=== PATIENT | female | born 1935 | race Caucasian/White ===

== ENCOUNTER 2019-03-13 07:25 | Inpatient (IN) | payer OTHER, MEDICARE ==
[2019-03-13] VITALS (11 sets, daily range): BP systolic 128–209; BP diastolic 51–93
[~2019-03-13] VITALS: Ht 160 cm; Wt 44.6 kg
[2019-03-13] MEDS ORDERED: ASPIRIN325 PO (08:01)
[2019-03-13] MEDS ORDERED: ACCU-CHEK SMAR1 EACH MC (08:04)
[2019-03-13 09:29] LABS: ABSOLUTE NEUTROPHILS 11.5 thou/uL (1.4-8.2); BASOPHILS 1.1 % (0.0-2.0); EOSINOPHILS 1.7 % (0.0-3.0); HEMATOCRIT 39.4 % (37.0-47.0); HEMOGLOBIN 12.4 gm/dL (12.0-15.0); LYMPHOCYTES 5.8 % (24.0-44.0); MCH 28.4 pg (26.0-34.0); MCHC 31.4 g/dL (28.0-37.0); MCV 90.7 fL (80.0-100.0); MONOCYTES 2.2 % (1.0-8.0); PLATELET COUNT 313 thou/uL (150-400); POLYS 89.2 % (36.0-66.0); RBC 4.35 mil/uL (4.20-5.00); RDW 16.6 % (10.5-14.5); WBC 12.9 thou/uL (4.0-11.0)
[2019-03-13 09:43] LABS: CALCIUM 9.8 mg/dL (8.5-10.1); CREATININE 0.7 mg/dL (0.6-1.0); POTASSIUM 4.1 mmol/L (3.5-5.1)
[2019-03-13 09:45] LABS: PROTIME 10.7 Seconds (9.3-11.4)
[2019-03-13 09:50] LABS: TOTAL BILIRUBIN 0.8 mg/dL (<0.1-1.0); TOTAL PROTEIN 7.9 g/dL (6.4-8.2)
[2019-03-13 10:56] LABS: URINE BILIRUBIN NEGATIVE (Negative); URINE BLOOD NEGATIVE (Negative); URINE CLARITY CLEAR; URINE COLOR YELLOW; URINE GLUCOSE-RANDOM* NEGATIVE (Negative); URINE KETONES NEGATIVE (Negative); URINE LEUKOCYTES-REFLEX NEGATIVE (Negative); URINE NITRITE-REFLEX NEGATIVE (Negative); URINE PROTEIN (DIPSTICK) NEGATIVE (Negative); URINE SPECIFIC GRAVITY 1.015 (1.005-1.035); URINE UROBILINOGEN 0.2 E.U./dl (0.2-1.0)
[2019-03-13 11:17] LABS: AMP/METHAMP Negative (Negative); BARBITURATES Negative (Negative); BENZODIAZEPINES Negative (Negative); COCAINE Negative (Negative); METHADONE Negative (Negative); OPIATES Negative (Negative); PCP Negative (Negative)
[2019-03-13] MEDS ORDERED: ALEVE220 MG PO (12:11)
[2019-03-13 14:24] LABS: BE(vivo) 5.8 mmol/L (-2 to +3); PCO2 42.4 mmHg (35.0-45.0); PO2 64.3 mmHg (80.0-100.0); pH 7.468 (7.360-7.450); sO2 93.6 % (92.0-98.0)
--- NOTE | 2019-03-13 18:22 | NUR ---
ARRIVED ON UNIT @ 1511 03/13/19 WITH THE ASSIST OF 2 RN'S, PT ARRIVED WITH NOTHING INFUSING, FLUIDS RESTARTED ON THE ICU PER ORDER, HYDRALAZINE GIVEN FOR A SBP IN 172, SBP DOWN TO THE 140'S, PLAN OF CARE- CONT TO MONITOR.
[2019-03-14] VITALS (16 sets, daily range): BP systolic 126–197; BP diastolic 55–83
--- NOTE | 2019-03-14 03:46 | NUR ---
ASSUMED PT CARE AROUND 1900. PT IS ORIENTED X2-3 BUT FORGETFUL. SHE IS VERY PLEASANT AND COOPERATIVE. C/O BACK PAIN AND LEFT HIP PAIN. PAIN MEDICATION GIVEN. DENIES SOA. VSS. AFEBRILE. PT HAS BEEN REPOSITIONED Q2H TO PREVENT SKIN BREAKDOWN. NPO SINCE MIDNIGHT FOR SURGERY TODAY. INCONTINENT OF URINE; HAVING DIFFICULTY WITH PURWICK EXTERNAL FEMALE CATHETER CATCHING HER URINE. JUST SPOKE WITH DR TEIXEIRA; ORDER RECEIVED TO PLACE OLMEDO CATHETER. FALL PRECAUTIONS IN PLACE. PROGRESSING SLOWLY TOWARD POC GOALS. WILL CONTINUE TO MONITOR FURTHER.
[2019-03-14 04:22] LABS: ALBUMIN 2.3 g/dL (3.4-5.0); CALCIUM 8.7 mg/dL (8.5-10.1); CREATININE 0.6 mg/dL (0.6-1.0); POTASSIUM 3.5 mmol/L (3.5-5.1); TOTAL BILIRUBIN 0.8 mg/dL (<0.1-1.0); TOTAL PROTEIN 5.8 g/dL (6.4-8.2)
[2019-03-14 04:25] LABS: MAGNESIUM 1.5 mg/dL (1.8-2.4); PHOSPHORUS 3.4 mg/dL (2.5-4.9)
[2019-03-14 05:00] LABS: HEMATOCRIT 31.5 % (37.0-47.0); MCH 28.8 pg (26.0-34.0); MCHC 31.7 g/dL (28.0-37.0); MCV 90.7 fL (80.0-100.0); RBC 3.47 mil/uL (4.20-5.00); RDW 16.9 % (10.5-14.5); WBC 10.1 thou/uL (4.0-11.0)
--- NOTE | 2019-03-14 07:49 | 2DMMODE ---
[facility] [address] [place] [address] 2 D/M-MODE ECHOCARDIOGRAM Name: MAURICIO SHEIKH Blaire Room #: 238-P [facility] IN .R.#: [id number] Admission: 03/13/19 Attend Phys: Andrew Garcia, Discharge: Date of : 31 Report #: [id number] THIS REPORT FOR: //name// APPROVED REPORT Study performed: 03/13/2019 13:01:40 EXAM: Comprehensive 2D, Doppler, and color-flow Echocardiogram Patient Location: ER Status: routine BSA: 1.47 HR: 74 bpm Rhythm: NSR Other Information Study Quality: Adequate Indications Pre-Op Hypertension/HDD 2D Dimensions RVDd: 37.09 mm IVC: 23.00 mm Volumes Left Atrial Volume (Systole) Single Plane 4CH: 64.40 mL Single Plane 2CH: 57.50 mL LA ESV Index: 46.00 mL/m2 Aortic Valve AoV Peak Steven.: 1.65 m/s AO Peak Gr.: 10.93 mmHg LVOT Max P.27 mmHg LVOT Max V: 1.03 m/s Mitral Valve E/A Ratio: 0.4 MV Decel. Time: 337.90 ms MV E Max Steven.: 0.60 m/s MV A Steven.: 1.52 m/s MV PHT: 97.99 ms IVRT: 166.09 ms [facility] [address] [address] 2 D/M-MODE ECHOCARDIOGRAM Name: MAURICIO SHEIKH Room #: 238-P ADM IN .R.#: [id number] Admission: 03/13/19 Attend Phys: Andrew Garcia, Discharge: Date of : 33 Report #: [id number] Pulmonary Valve PV Peak Steven.: 0.99 m/s PV Peak Gr.: 3.99 mmHg Pulmonary Vein P Vein S: 0.53 m/s P Vein A: 0.23 m/s P Vein D: 0.28 m/s P Vein A Dur.: 92.3 msec P Vein S/D Ratio: 1.89 Tricuspid Valve TR Peak Steven.: 2.87 m/s TR Peak Gr.: 33.04 mmHg PA Pressure: 43.00 mmHg Left Ventricle The left ventricle is normal size. There is normal LV segmental wall motion. There is normal left ventricular wall thickness. The left ventricular systolic function is normal. The left ventricular ejection fraction is within the normal range. LVEF is 60-65%. Mild diastolic dysfunction is present (impaired relaxation pattern). Right Ventricle The right ventricle is normal size. The right ventricular systolic function is normal. RVH. Atria Left atrium is dilated. Right atrium is at the upper limits of normal. Aortic Valve The aortic valve is calcified No aortic regurgitation is present. There is no aortic valvular stenosis. Mitral Valve Mild mitral annular calcification. Mildly calcified mitral leaflets. Mild mitral regurgitation. No evidence of mitral valve stenosis. Tricuspid Valve The tricuspid valve is normal in structure. There is trace tricuspid regurgitation. Estimated PAP 43 mmHg. There is moderate pulmonary hypertension. Pulmonic Valve The pulmonary valve is normal in structure. Trace pulmonic regurgitation. [facility] [address] [place] [address] 2 D/M-MODE ECHOCARDIOGRAM Name: MAURICIO SHEIKH Room #: 238-[facility] IN [facility].#: [id number] Admission: 03/13/19 Attend Phys: Andrew Garcia, Discharge: Date of : 31 Report #: [id number] Great Vessels The aortic root is normal in size. IVC is dilated and collapses <50% with inspiration. Pericardium There is no pericardial effusion. <Conclusion> The left ventricular systolic function is normal. There is normal LV segmental wall motion. LVEF is 60-65%. Mild diastolic dysfunction The right ventricular systolic function is normal. RVH. The aortic valve is calcified. No aortic regurgitation or stenosis. Mild mitral annular calcification. Mildly calcified mitral leaflets. Mild mitral regurgitation. There is trace tricuspid regurgitation. Estimated pulmonary artery pressure of 43 mmHg. There is no pericardial effusion. <ELECTRONICALLY SIGNED> By: Tomy Watson MD, FACC 03/14/19 0748 0748 0748 Tomy Watson MD, FACC /INF
--- NOTE | 2019-03-14 08:30 | EKG ---
[address] [place] [address] ELECTROCARDIOGRAM REPORT Name: MAURICIO SHEIKH Room #: 238-P ADM IN M.R.#: [id number] Admission: 03/13/19 Attend Phys: Andrew Garcia MD Discharge: Date of : 31 Report #: [id number] THIS REPORT FOR: //name// Test Date: 2019-03-13 Test Time: 16:37:23 Pat Name: MAURICIO SHEIKH Department: Room: 238 Gender: F Cathodic Protection Technician: Alessia ANDERSON : 1935 Requested By: Olga Salazar Order Number: [id number] MD: Tomy Watson Measurements Intervals [place] Rate: 80 P: 67 [place]: 176 QRS: 43 QRSD: 73 T: -25 QT: 481 QTc: 555 Interpretive Statements Sinus rhythm Left atrial enlargement Nonspecific T wave abnormality Prolonged QT interval No previous ECG available for comparison Electronically Signed On 03-14-2019 8:30:14 CROWN PRESSER by Tomy Watson [email or web address] <ELECTRONICALLY SIGNED> By: Tomy Watson MD, [facility] 03/14/19 0830 D: 11/1636 36 Tomy Watson MD, FACC /EPI
--- NOTE | 2019-03-14 09:18 | NUR ---
Assess due to low BMI 17.4. Admitted with hip fracture post fall at home. Minor wt loss few pounds from usual. NPO for surgical intervention today. Follow for timely diet advance and tolerance. Add oral supplement if necessary. Otherwise low nutrition risk.
--- NOTE | 2019-03-14 10:53 | NUR ---
Case opened to follow for dc planning. Chart reviewed and case discussed with the care team. The pt was admitted with lt hip fx and lt rib fx after a fall at home. She is in the surgery this morning for her hip. The pt's only contact is a friend named Ria who I believe is also her roommate. Message left for Ria to contact cm to help with her assessment. The pt lives at the [facility] and was using a rwalker prior to admission. Per her chart, she does not drive but was able to go out with her friend to do errands and shopping. She was indep with gait, adl's, med mngt and helped with some Iadl's prior to admission. She expressed interest in going to [facility] for rehab postop. Will f/u with the pt as able and initiate a snf referral with [facility].
--- NOTE | 2019-03-14 13:58 | NUR ---
BACK FROM OR AT 1300, LEFT HIP PINNED, DRESSING CDI, ICE PACK APPLIED. C/O PAIN WHEN MOVING, 510. OXYCONTIN 5MG GIVEN. 15 [place] OLMEDO CATHETER PLACED AND 250CC CLEAR YELLOW URINE NOTED. WILL TRANSFER TO ROOM 442 [facility]
--- NOTE | 2019-03-14 16:26 | NUR ---
83 YO FEMALE TRANSFERED FROM ICU TO 442. A&OX4. IV INTACT IN L FA INFUSING FLUIDS W/O COMPS. DRSG TO L HIP C/D/I. OLMEDO CATHETER INTACT. DENIES PAIN AT THIS TIME. ORIENTED PT TO ROOM/CALL LIGHT. ICE BAG APPLIED TO L HIP.
--- NOTE | 2019-03-14 16:40 | NUR ---
FAXED REFERRAL TO [facility] RECEIVED CONFIRMATIN AND LEFT MSG WITH GRAHAM IN ADM THAT PT IS HAVING HIP SURGERY TODAY WILL FAX THERAPY NOTES ONCE AVAILABLE. DP TO FOLLOW.
[2019-03-15] VITALS: BP 89/62
[2019-03-15 00:07] LABS: GLYCOHEMOGLOBIN (HGB A1C) 5.6 % (4.8-5.6)
[2019-03-15 03:00] VITALS: BP 166/66
[2019-03-15 05:29] LABS: HEMATOCRIT 29.9 % (37.0-47.0); HEMOGLOBIN 9.6 gm/dL (12.0-15.0); MCH 29.4 pg (26.0-34.0); MCHC 32.1 g/dL (28.0-37.0); MCV 91.6 fL (80.0-100.0); RBC 3.26 mil/uL (4.20-5.00); RDW 17.2 % (10.5-14.5); WBC 10.9 thou/uL (4.0-11.0)
[2019-03-15 05:48] LABS: ALBUMIN 2.3 g/dL (3.4-5.0); CALCIUM 8.9 mg/dL (8.5-10.1); CREATININE 0.6 mg/dL (0.6-1.0); MAGNESIUM 1.9 mg/dL (1.8-2.4); POTASSIUM 3.4 mmol/L (3.5-5.1); TOTAL BILIRUBIN 0.7 mg/dL (<0.1-1.0)
--- NOTE | 2019-03-15 06:21 | NUR ---
ASSUMED PT CARE 03/14 @1900. PT COMPLAINING OF HEADACHE, GIVEN TYLENOL WHICH PROVIDED RELIEF. HYDRALAZINE GIVEN FOR HIGH BP, INSULIN GIVEN FOR HIGH BS. 375ML EMPTIED FROM CATHETER, WILL NOTIFY AM NURSE TO MONITOR OUTPUT CLOSELY. FLUIDS RUNNING @125, REPOSITIONED FREQUENTLY.
[2019-03-15 08:54] VITALS: BP 151/63
--- NOTE | 2019-03-15 15:00 | NUR ---
[facility] AND [facility] BOTH INDICATED THAT THEY ARE ABLE TO ACCEPT PT. CM NOTIFIED PT AND SHE INDICATED SHE WOULD PREFER TO GO TO [facility] ONCE MEDICALLY STABLE. CM CALLED THE NUMBER LISTED FOR HER ROOMMATE BUT INFOMRED PT THAT CM WASN'T ABLE TO REACH HER. CM NOTIFIED CARE TEAM. CM TO FOLLOW INDICATED WITH DC PLANNING.
--- NOTE | 2019-03-15 15:18 | NUR ---
PATIENT SEEN BY DR. MCCURDY THIS DATE. PATIENT IS A CANDIDATE FOR [facility] WITH ANTICIPATED ADMISSION WHEN MEDICALLY STABLE. PATIENT ANTICIPATED TO BE READY FOR REHAB WEDNESDAY,03/17/19. WILL CONTINUE TO FOLLOW. THANK YOU FOR THIS REFERRAL.
[2019-03-15 17:46] VITALS: BP 184/90
--- NOTE | 2019-03-15 18:40 | NUR ---
PT A&OX4, FORGETFUL AT TIMES. IV INTACT IN L WRIST INFUSING NS@ /HR W/O COMPS. ABD DRSG TO L HIP IS C/D/I. ICE PACK APPLIED TO R HIP. OLMEDO HAD FELL OUT THIS AM. PT HAS VOIDED SINCE. BED ALARM ON, CALL LIGHT W/I REACH.
[2019-03-15 19:19] VITALS: BP 172/78
--- NOTE | 2019-03-16 00:52 | NUR ---
ASSUMED CARE OF PATIENT AT SHIFT CHANGE. ASSESSMENT CHARTED. MEDICATIONS GIVEN PER JUN. PATIENT REFUSED JOYA. MIRALAX BUT DID TAKE COLASE. PATIENT IS ALERT AND ORIENTED X4 AT THIS TIME. SHE HAS A REPORTED HX. OF CINFUSION BUT IT IS NOT EVIDENT AT THIS TIME. PATIENT DID WORK WITH PT BUT WE HAVE DECIDED THAT DUE TO HER WEAKNESS SHE WILL BE USING A FRACTURE FERREIRA THIS SHIFT TO VOID. PATIENT WAS BLADDER SCANNED AND SHOWED 81MLS OF URINE. SHE LATER VOIDED 90MLS. PATIENT DID COMPLAIN OF L HIP AND RIB PAIN EXACERBATED BY MOVEMENT. PRN PAIN MED GIVEN. PT HAD A BM EARLIER DURING THE DAY. PER CM NOTE, PLAN IS TO D/C TO [facility] AT [facility] OR [facility]. FALL PRECAUTIONS IN PLACE. CALL LIGHT W/I REACH. WILL CONTINUE TO MONITOR AND FOLLOW PLAN OF CARE
[2019-03-16 04:25] VITALS: BP 185/81
[2019-03-16 05:30] VITALS: BP 157/62
[2019-03-16 07:43] VITALS: BP 144/57
--- NOTE | 2019-03-16 16:29 | NUR ---
PT A&OX4. TRANSFERS WITH MAX ASSIST TO CHAIR. IV INTACT IN L W AND R AC INFUSING FLUIDS W/O COMPS. PT VOIDS IN BED FERREIRA THOUGH ALSO HAS URGENCY INCONT. PT/OT HAS SEEN PT TWICE TODAY. TOLERATING PO PAIN MEDS. PLANS ARE FOR PT TO ADMIT TO [facility] 03/17/19. WILL CONT POC.
[2019-03-16 17:07] VITALS: BP 160/84
[2019-03-16 19:27] VITALS: BP 179/69
[2019-03-17 01:46] VITALS: BP 199/80
[2019-03-17 04:22] VITALS: BP 160/63
--- NOTE | 2019-03-17 06:15 | NUR ---
ASSUMED PT CARE ON 03/16/19 APPROX 191. PT IS ALERT AND ORIENTED X 3. PT IS FORGETFUL. PT ASKS TO USE THE BEDPAN BUT WILL NOT US THE CALL LIGHT. PT HAS BEEN RE EDUCATED ON HOW TO USE THE CALL LIGHT. PT TOOK EVENING MEDICATION WILLINGLY. PT HAS AN IV IN HER LEFT FA, NS RUNNING AT 125 MLS AN HR. PT HAS VOIDED AND HAD 4 BM'S DURING THE NIGHT. PT HAS RECEIVED [facility]. DRESSING ON THE LEFT HIP IS DRY AND STILL IN PLACE. WILL CONTINUE TO MONITOR.
--- NOTE | 2019-03-17 08:08 | NUR ---
PATIENT RESING IN BED HAS DRESSIND INTACT TO LEFT HIP. PT ALERT XS 4 USES BEDPAN. PLEASANT AND COOPERATIVE WITH CARE.
[2019-03-17 09:38] VITALS: BP 117/67
[2019-03-17] MEDS ORDERED: LISINOPRIL2.5 MG PO (13:36)
[2019-03-17] MEDS ORDERED: LIDOCAINE PAIN1 EACH TRANSDERM (13:59)
[2019-03-17] MEDS ORDERED: HUMALOG100 UNIT/1 SUBQ ×2 (14:03→14:45)
[2019-03-17] MEDS ORDERED: COLACE100 MG PO (14:07)
[2019-03-17] MEDS ORDERED: AMOXICILLI400 MG/5 M PO (14:08)
[2019-03-17] MEDS ORDERED: HEPARIN 1,1000 UNIT/ SUBQ (14:14)
[2019-03-17] MEDS ORDERED: HYDRALAZINE 10M10 MG IV PUSH (14:23)
--- NOTE | 2019-03-17 15:38 | NUR ---
DISCHARGE PAPERS GONE OVER SIGNED AND COPY IN CHART. REPORT GIVEN TO [address] [place] [address] NURSE. MED PRDERS PUT IN COMPUTER PER DR TEIXEIRA AND ALSO DR MCCURDY WHO CAME TO UNIT TO SEE PATIENT HE ASKED THAT IV BE LEFT IN PLACE. ALL BELONGINGS TAKEN WITH PATIENT TO ROOM 513. PT WAS DCD FROM [address] [place] [address] AND WILL BE READMITTED ON [address] [place] [address]. PT W/O PAIN OR RESP DISTRESS AT DISCHARGE.
--- NOTE | 2019-03-22 12:20 | O ---
[facility] [place] [address] OPERATIVE REPORT Name: MAURICIO SHEIKH Room #: 442-P [facility] IN M.R.#: [id number] Admission: 03/13/19 Attend Phys: Andrew Garcia MD Discharge: 03/17/19 Date of : 31 Report #: [id number] THIS REPORT FOR: //name// CC: Andrew Rogers DATE OF SERVICE: 03/14/2019 PREOPERATIVE DIAGNOSIS: Left hip femoral neck fracture. POSTOPERATIVE DIAGNOSIS: Left hip femoral neck fracture. PROCEDURE: Left hip percutaneous screw. SURGEON: Dr. Wil Sutherland. CAPONIZER: Sharon Dejesus. ANESTHESIA: General. ESTIMATED BLOOD LOSS: Minimal. DRAINS: No drains. TOURNIQUET TIME: Zero. COMPLICATIONS: There were no complications. DESCRIPTION OF PROCEDURE: The patient brought to the operating room where she was placed under general anesthesia. Once under adequate general anesthesia, she was placed onto the operative table. The patient's left lower extremity was placed into traction on the fracture table and reduction was verified to be satisfactory on the fluoroscopy. The left hip was then prepped and draped in sterile manner, through a 1 cm incision 3 7.3 mm cannulated screws were placed under fluoroscopic guidance from the lateral cortex into the femoral neck. Excellent fixation was achieved in this manner with 3 screws in an inverted fashion. The wounds were then irrigated copiously and closed with 2-0 Vicryl in subcutaneous tissues and cielo for the skin. The wound was dressed with Xeroform, 4 x 4s, and sterile soft compressive dressing was placed. There were no complications from the procedure. The patient tolerated the procedure well and went to the recovery room without incident. <ELECTRONICALLY SIGNED> By: Wil Sutherland MD 03/22/19 1220 1101 1107 Wil Sutherland MD /nt
--- NOTE | 2019-03-24 16:25 | HC ---
[facility] [place] [address] CONSULTATION Name: MAURICIO SHEIKH Room #: 442-P [facility] IN M.R.#: [id number] Admission: 03/13/19 Attend Phys: Andrew Garcia MD Discharge: 03/17/19 Date of : 33 Report #: [id number] THIS REPORT FOR: //name// CC: Andrew Teixeiratasia Herndons DATE OF SERVICE: 03/15/2019 HISTORY OF PRESENT ILLNESS: The patient is an 83-year-old white female who fell from standing, sustaining left-sided rib fractures and also had a left femoral neck fracture. She was admitted to [facility] and underwent a left hip screw on 03/14/2019. She is allowed the weightbearing as tolerated. The patient has a prior recent history of a large pleural effusion and underwent thoracentesis at [facility] approximately a month prior. She was seen by Pulmonary Medicine. CT did show some cavitary changes, right upper lobe. She also has some pulmonary fibrosis. Pulmonary Medicine is involved. We are seeing her in rehabilitation medicine consultation. PAST MEDICAL HISTORY: Includes diabetes mellitus type 2. There is a note of some memory loss on donepezil, tobacco abuse, quit approximately a month prior. PAST SURGICAL HISTORY: Includes the prior right chest thoracentesis, appendectomy. FAMILY HISTORY: Father had throat cancer. ALLERGIES: No known drug allergies. MEDICATIONS: Please see the full medication listing. SOCIAL HISTORY: Lives in an apartment with a roommate. The roommate is in a wheelchair currently. No steps. The patient is a premorbid walker ambulator herself. REVIEW OF SYSTEMS: No current complaints of shortness of breath. She has the chest wall discomfort. No abdominal discomfort. She has some hip pain as expected. PHYSICAL EXAMINATION: GENERAL: She is a pleasant, thin 83-year-old white female in no obvious distress. VITAL SIGNS: Last recorded temperature 97.8, pulse 86, respirations 17, blood pressure 151/63. She is alert, pleasant, oriented. HEENT: Appeared to be benign. NEUROLOGIC: Cranial nerves are grossly intact. Facies are symmetric. She has functional range of motion of both upper extremities with strength grade 4-/5. [facility] [address] [place] [address] CONSULTATION Name: MAURICIO SHEIKH Room #: 442-P [facility] IN ..#: [id number] Admission: 03/13/19 Attend Phys: Andrew Garcia MD Discharge: 03/17/19 Date of : 33 Report #: [id number] DTRs are trace to 1. She has some discomfort of the left-sided ribs. Left hip is dressed. There is no focal calf swelling. She can dorsiflex the left ankle. Tone appeared to be intact. Functional range of motion with strength grade 3+ to 4-/5 right lower extremity. Tone is intact. She is mod assist coming to stand and took 7 steps front-wheeled walker, mod assist. ASSESSMENT: An 83-year-old white female with the following problem list: 1. Left femoral neck fracture, status post left hip screw, 03/14/2019, allow weightbearing as tolerated. 2. Multiple left-sided rib fractures. 3. Large pleural effusion with recent right thoracentesis at [facility]. 4. Cavitary changes noted, right upper lobe on CT scan. 5. Pulmonary fibrosis. 6. Hypertension. 7. Diabetes mellitus type 2. 8. Tobacco abuse. 9. Prior history of some memory problems. Nevertheless, living in the community. PLAN: The patient is a good candidate for a [address] [place] [address] acute in-hospital inpatient rehabilitation stay. Can plan on transfer when medically cleared. <ELECTRONICALLY SIGNED> By: Ryan Jamil MD 03/24/19 1625 [id number] Ryan Jamil MD /[facility]
== END 2019-03-17 15:30 | DRG 480 ==
LOC: ER 07:25 → ICU 10:02 → 4S 10:02 → EROBS 10:02 → ICU 14:56 → 4S 03-14 16:00
PROVIDERS: Emergency Medicine; Nurse Practitioner Family; ADMIT Surgery
PROC: 0QH734Z Insertion of Internal Fixation Device into Left Upper Femur, Percutaneous Approach (ICD-10-PCS; principal; 2019-03-14)
DX: S72.012A Unspecified intracapsular fracture of left femur, initial encounter for closed fracture (principal); J85.2 Abscess of lung without pneumonia; S22.42XA Multiple fractures of ribs, left side, initial encounter for closed fracture; E11.9 Type 2 diabetes mellitus without complications; I16.0 Hypertensive urgency; W01.0XXA Fall on same level from slipping, tripping and stumbling without subsequent striking against object, initial encounter; I10 Essential (primary) hypertension; J84.10 Pulmonary fibrosis, unspecified; E87.6 Hypokalemia; D64.9 Anemia, unspecified; J44.9 Chronic obstructive pulmonary disease, unspecified; D72.829 Elevated white blood cell count, unspecified; F03.90 Unspecified dementia, unspecified severity, without behavioral disturbance, psychotic disturbance, mood disturbance, and anxiety; Z79.899 Other long term (current) drug therapy; Z79.82 Long term (current) use of aspirin; Z87.891 Personal history of nicotine dependence; Z90.89 Acquired absence of other organs; Z80.8 Family history of malignant neoplasm of other organs or systems; Y93.89 Activity, other specified; Y99.8 Other external cause status; Z79.4 Long term (current) use of insulin; Z79.84 Long term (current) use of oral hypoglycemic drugs; Y92.098 Other place in other non-institutional residence as the place of occurrence of the external cause
CPT/HCPCS: 10078; 10195; 50010; 50101; 50386; 51412; 51538; 52304; 53400; 56524; 57092; 62110; 62900; 70005

== ENCOUNTER 2019-03-17 10:03 | Inpatient (IN) | payer OTHER, MEDICARE ==
[~2019-03-17] VITALS: Ht 160 cm; Wt 44.8 kg
[~2019-03-17 10:03] MED LIST: ACCU-CHEK SMAR1 EACH MC; ALEVE220 MG PO; ASPIRIN325 PO
[2019-03-17] MEDS ORDERED: LISINOPRIL2.5 MG PO (13:36)
[2019-03-17] MEDS ORDERED: LIDOCAINE PAIN1 EACH TRANSDERM (13:59)
[2019-03-17] MEDS ORDERED: HUMALOG100 UNIT/1 SUBQ ×2 (14:03→14:45)
[2019-03-17] MEDS ORDERED: COLACE100 MG PO (14:07)
[2019-03-17] MEDS ORDERED: AMOXICILLI400 MG/5 M PO (14:08)
[2019-03-17] MEDS ORDERED: HEPARIN 1,1000 UNIT/ SUBQ (14:14)
[2019-03-17] MEDS ORDERED: HYDRALAZINE 10M10 MG IV PUSH (14:23)
--- NOTE | 2019-03-17 16:37 | NUR ---
1600 ADMITTED TO ROOM 513 WITH DX OF FX LEFT HIP AND RIBS. PATIENT IS ALERT AND ORIENTED X4, BUT FORGETFUL. PATIENT SINGH'S, BENCH CHEMIST ARE EQUAL. LUNGS ARE CLEAR AND DEMINISHED. ABD IS SOFT WITH BSX4. UP TO BSC FOR B & B WITH AN ASSIST OF 1 STAFF AND GAIT BELT. DRESSING TO HER LEFT HIP IS DRY AND INTACT 7 RON. FALL AND SAFETY PROTOCOLS IN PLACE. DENIES ANY PAIN AT THIS TIME. PLAN EVALS FOR PT/ OT /ST IN A.M. CALL LIGHT IN REACH AND ALARMS ARE ON. WILL CONTINUE TO MONITER.
[2019-03-17 16:58] VITALS: BP 188/94
[2019-03-17 19:35] VITALS: BP 193/95
[2019-03-17 21:45] VITALS: BP 200/102
[2019-03-17 23:05] VITALS: BP 140/63
--- NOTE | 2019-03-18 03:42 | NUR ---
ASSUMED CARE AT APPROX 1900 EVENING 03/17.PT LYING IN BED WITH HEAD OF BED ELEVATED AT CHANGE OF SHIFT. PT FORGETFUL. PT ASSISTED UP TO BSC TWICE BEFORE FALLING ASLEEP. PT WITH HIGH BP 200/102. GIVEN IV HYDRALAZINE ORDERED AND BP WENT DOWN TO 140/63. PT APPEARS TO BE SLEEPING SOUNDLY AT PRESENT. BED ALARM ON AND CALL LIGHT IN REACH. WILL CONTINUE TO MONITOR.
[2019-03-18 05:16] VITALS: BP 170/81
[2019-03-18 05:17] LABS: CALCIUM 8.6 mg/dL (8.5-10.1); CREATININE 0.5 mg/dL (0.6-1.0); HEMATOCRIT 31.9 % (37.0-47.0); HEMOGLOBIN 10.2 gm/dL (12.0-15.0); MCH 29.5 pg (26.0-34.0); MCV 92.1 fL (80.0-100.0); POTASSIUM 3.3 mmol/L (3.5-5.1); RBC 3.46 mil/uL (4.20-5.00); RDW 17.6 % (10.5-14.5); WBC 8.7 thou/uL (4.0-11.0)
--- NOTE | 2019-03-18 15:04 | NUR ---
ASSUMED CARE OF PT AT 0715. PT IS A&OX4. PT HAS TRACE EDEMA TO BLE. AT APPROXIMATELY 1100 PT B/P ELEVATED AND PT WAS GIVEN IV HYDRALAZINE PER ORDERS. IV TO RIGHT AND LEFT FOREARM NOT PATENT AND WERE REMOVED AND NEW IV PLACED IN RIGHT FOREARM. ACCU CHECKS ACHS MONITORED AND MANAGED WITH LOW DOSE SS. FALL PRECAUTIONS IN PLACE AND NURSING WILL CONTINUE TO MONITOR.
[2019-03-18 19:52] VITALS: BP 172/84
[2019-03-18 21:25] VITALS: BP 178/81
[2019-03-18 22:35] VITALS: BP 142/86
--- NOTE | 2019-03-19 02:36 | NUR ---
ASSUMED CARE AT APPROX 1900 EVENING 03/18. PT LYING IN BED WITH HEAD OF BED ELEVATED AT CHANGE OF SHIFT. PT AWAKE YET DOZING OFF AND ON. PT TOOK HS MEDS WITH WATER TOLERATING WELL. IV HYDRALAZINE GIVEN FOR HTN AND BP IMPROVED (SEE CHARTING RESULT). ASSISTED PT UP TO BSC TO HAVE LIQUID STOOL. PT NOW BACK TO BED. BED ALARM ON AND CALL LIGHT IN REACH. WILL CONTINUE TO MONITOR.
[2019-03-19 05:10] LABS: HEMATOCRIT 29.8 % (37.0-47.0); HEMOGLOBIN 9.8 gm/dL (12.0-15.0); MCH 29.8 pg (26.0-34.0); MCHC 32.8 g/dL (28.0-37.0); MCV 90.7 fL (80.0-100.0); RBC 3.29 mil/uL (4.20-5.00); RDW 17.4 % (10.5-14.5); WBC 7.6 thou/uL (4.0-11.0)
[2019-03-19 05:15] LABS: CALCIUM 9.2 mg/dL (8.5-10.1); CREATININE 0.6 mg/dL (0.6-1.0); MAGNESIUM 1.5 mg/dL (1.8-2.4); POTASSIUM 3.8 mmol/L (3.5-5.1)
[2019-03-19 08:56] VITALS: BP 187/86
--- NOTE | 2019-03-19 18:17 | NUR ---
ASSUMED CARE OF PT AT 0715. PT IS A&OX4. BLOOD PRESSURE ELEVATED DURING AM VITAL SIGN CHECK, MANAGED WITH PO AND IV MEDICAITONS. IV TO RIGHT FOREARM IS PATENT, DRESSING C/D/I, AND SITE WNL. CONTINUE CONTACT PRECAUTIONS FOR C-DIFF. IV MAGNESIUM ORDERED BY PROVIDER FOR DECREASED MAGNESIUM ON AM LABS. LEFT HIP SURGICAL SITE HIGHWAY TRAFFIC CONTROL TECHNICIAN, RON INTACT, SITE WELL APPROXIMATED WITHOUT DRAINAGE, REDNESS, OR EDEMA. CALLS APPROPRIATLEY, FALL PRECAUTIONS IN PLACE AND NURSING WILL CONTINUE TO MONITOR.
[2019-03-19 19:55] VITALS: BP 169/90
--- NOTE | 2019-03-20 02:58 | NUR ---
UP TO BSC WITH ONE PERSON ASSIST. STILL HAVING PAIN AFTER MIDNIGHT TYLENOL, TRAMADOL FOR PAIN = 7, LEFT LEG ELEVATED TO OFF-LOAD LEFT MEDIAL HEEL. PATIENT IS SLEEPING AT THIS TIME. TOLERATING MED FOR C-DIFF. SPECIAL ISOLATION
[2019-03-20 08:07] VITALS: BP 148/84
[2019-03-20 08:42] VITALS: BP 148/84
--- NOTE | 2019-03-20 11:44 | NUR ---
ASSUMED CARE OF PT AT 0715. REPORTS SLEPT FAIR. NIGHT NURSE REPORTS PT STILL HAS LOOSE STOOL.NOTIFIED YELITZA AND OBTAINED ORDER FOR PROBIOTIC. BS HAS BEEN STABLE LESS THAN 120. ON MODERATE DOSE SS. NOTIFIED YELITZA TO SEE IF PT NEED FOR ACHS AND ON MODERATE DOSE. SHE WILL CHECK WITH PT AND ADJUST ACCORDINGLY. PT IS A&OX4. ASSINIBOINE AND [place] TRIBES. VSS ON RA. IV TO RIGHT FOREARM IS PATENT, DRESSING C/D/I, AND SITE WNL. CONTINUE CONTACT PRECAUTIONS FOR C-DIFF. LEFT HIP SURGICAL SITE JUANCARLOS, RON INTACT, SITE WELL APPROXIMATED WITHOUT DRAINAGE, REDNESS, OR EDEMA. C/O PAIN ON RIGHT HIP AND RIBS. RATES PAIN 6/10 PRN TRAMADOL GIVEN AND LIDOCAIN PATCH APPLIED. PT WALKED WITH PHYSICAL THERAPIST AND HAD SPONGE BATH WITH OT. WORKING WITH ST NOW. OFFERED SUPPORTIVE CARE AND ENCOURAGEMENT. UP WITH MAX ASSIST WITH WALKER AND GB. CALLS APPROPRIATLEY, FALL PRECAUTIONS IN PLACE AND NURSING WILL CONTINUE TO MONITOR.
--- NOTE | 2019-03-20 12:20 | NUR ---
pt out of room, working with speech therapy. will cont following as needed for dc needs.
[2019-03-20 19:36] VITALS: BP 162/90
--- NOTE | 2019-03-20 23:35 | NUR ---
PT ASSESSMENT DONE AND VSS. MEDS GIVEN AND WELL TOLERATED. FALL PRECAUTIONS IN PLACE. ISOLATION MAINTAINED. SLEEPING WELL. HOURLY ROUNDING. CALL LIGHT IN REACH. WILL CONTINUE TO MONITOR.
[2019-03-21 07:45] VITALS: BP 179/95
[2019-03-21 07:55] VITALS: BP 179/95
[2019-03-21 08:33] VITALS: BP 156/85
--- NOTE | 2019-03-21 10:05 | NUR ---
REQUEST FOR [facility] RECORDS R/T TX PLAN FOR LUNG ABCESS HAS BEEN FAXED TO [facility] MEDICAL RECORDS DEPARTMENT. REQUEST WAS SENT STAT NEED.
--- NOTE | 2019-03-21 13:00 | NUR ---
team meeting, recommendation: re team with possible dc on with HH ( pt, ot, st and nursing). possible needs assist with bills and pills.
--- NOTE | 2019-03-21 14:57 | NUR ---
ASSUMED CARE OF PT AT 0715. PT IS A&OX4. KALTAG. VSS ON RA. IV TO RIGHT FOREARM IS PATENT, DRESSING C/D/I, AND SITE WNL. CONTINUE CONTACT PRECAUTIONS FOR C-DIFF. PT IS ON AMOXICILLIN FOR LUNG ABSCESS AND VACOMYOCIN FOR CDIFF. REQUESTS FOR KU DISCHARGE SUMMARY AND DURATION AMOXICILLIN FOR DR. FRANCIS. AMOXICILLIN D/C DATE WAS Jan. NOTIFIED DR. FRANCIS. LEFT HIP SURGICAL SITE JUANCARLOS, RON INTACT, SITE WELL APPROXIMATED WITHOUT DRAINAGE, REDNESS, OR EDEMA. C/O PAIN ON RIGHT HIP AND RIBS. RATES PAIN 6/10 PRN TRAMADOL GIVEN AND LIDOCAIN PATCH APPLIED. PT WAS UP WITH THERAPISTS AND FINISHED WITH HER THERAPY TODAY. RESTING IN BED AT THIS MOMENT. OFFERED SUPPORTIVE CARE AND ENCOURAGEMENT. UP WITH MAX ASSIST WITH WALKER AND GB. CALLS APPROPPROPRIATELY. FALL PRECAUTIONS IN PLACE AND NURSING WILL CONTINUE TO MONITOR.
[2019-03-21 19:46] VITALS: BP 183/94
--- NOTE | 2019-03-22 04:28 | NUR ---
PT ASSESSMENT DONE AND VSS. MEDS GIVEN AND WELL TOLERATED. FALL PRECAUTIONS IN PLACE. HOURLY ROUNDING. CALL LIGHT IN REACH. SLEEPING WELL. WILL CONTINUE TO MONITOR.
[2019-03-22 05:49] LABS: ABSOLUTE NEUTROPHILS 4.3 thou/uL (1.4-8.2); BASOPHILS 1.2 % (0.0-2.0); HEMATOCRIT 31.4 % (37.0-47.0); HEMOGLOBIN 10.3 gm/dL (12.0-15.0); LYMPHOCYTES 17.9 % (24.0-44.0); MCH 29.9 pg (26.0-34.0); MCHC 32.8 g/dL (28.0-37.0); MCV 91.2 fL (80.0-100.0); MONOCYTES 7.6 % (1.0-8.0); PLATELET COUNT 298 thou/uL (150-400); POLYS 61.3 % (36.0-66.0); RBC 3.45 mil/uL (4.20-5.00); RDW 17.5 % (10.5-14.5)
[2019-03-22 05:54] LABS: CALCIUM 8.7 mg/dL (8.5-10.1); CREATININE 0.6 mg/dL (0.6-1.0); MAGNESIUM 1.5 mg/dL (1.8-2.4)
[2019-03-22 05:55] LABS: POTASSIUM 2.9 mmol/L (3.5-5.1)
--- NOTE | 2019-03-22 06:13 | NUR ---
CRITICAL VALUE OF 2.9 POTASSIUM CALLED TO ME BY MATT IN THE LAB AT 0556. CALLED REVIEWER SALES GRAHAM TO REPORT VALUE AND GET ORDER AT 0605. ORDERS RECEIVED FOR 40 MEQ OF POTASSIUM PO NOW AND GIVE AGAIN IN 2 HOURS. WILL CONTINUE TO MONITOR.
[2019-03-22 07:36] VITALS: BP 171/99
--- NOTE | 2019-03-22 07:53 | NUR ---
ASSUME PT CARE AT 0700. B/P 171/99 HR 83, C/O LEFT HIP AND RIBS PAIN RATES PAIN 6/10, PRN HYDRALIZINE AND TRAMADOL GIVEN. NIGHT NURSE REPORT K 2.9 THIS AM. SUPPLEMENT GIVEN EARLIER AND ANOTHER 40MEQ POTASSIUM GIVEN NOW. PHYSICAL THERAPIST IS WORKING WITH PT NOW AND PT WILL GO TO EAT BREAKFAST AFTER THAT. OFFERED SUPPORTIVE CARE. ENCOURAGE PT TO VOICE HER NEEDS. AMOXILLIN HOLD THIS AM AND WILL CONTACT WITH DR. FRANCIS FOR FUTHER INSTRUSTION TO SEE IF PT STILL NEED TO BE ON AMOXICILLIN. FALL PRECAUTION IN PLACE. PT USES CALL LIGHT APPROPRIATELY, CONT BLADDER, ASSIST TO BSC NEED. WILL CONTINUE TO MONITOR.
[2019-03-22 08:48] VITALS: BP 175/95
--- NOTE | 2019-03-22 14:19 | NUR ---
Patient participated in community reintegration on 03/22/19 with Speech Therapy. Refer to documentation by
[2019-03-22 19:40] VITALS: BP 148/80
--- NOTE | 2019-03-23 03:41 | NUR ---
USING CALL LIGHT TO ASK FOR ASSIST UP TO BSC APPROX EVERY 2 HOURS FOR SIGNIFICANT VOIDS AND LAST EVENING HAD MODERATE SIZED FORMED STOOL. PIVOT TRANSFER TO BS WITH MINIMAL ASSIST. SPECIAL CONTACT ISOLATION, PO VANCOMYCIN. TRAMADOL FOR C/O PAIN AT HS, RESTING WELL SINCE THEN BETWEEN VOIDS.
--- NOTE | 2019-03-23 07:40 | NUR ---
Pt PARTICIPATED IN COMMUNITY REINTEGRATION ACTIVITY ON 03/22/[address], PLEASE REFER TO ST DOCUMENTATION
--- NOTE | 2019-03-23 16:45 | NUR ---
ASSUMED CARE OF PT AT 0715. PT IS A&OX4 AND VITAL SIGNS ARE STABLE. BLOOD PRESSURE MANAGED WITH PO MEDICATION. SPECIAL ISOLATION FOR C-DIFF CONTINUED. PT DENIES LOOSE STOOLS. REPORTS DISCOMFORT IN LEFT HIP AND RIBS. MANAGED WITH LIDOCAINE PATCH TO LEFT RIBS. PARTICIPATED IN SCHEDULED THERAPIES. CALLS APPROPRIATELY FOR ASSISTANCE, FALL PRECAUTIONS IN PLACE AND NURSING WILL CONTINUE TO MONITOR.
[2019-03-23 20:26] VITALS: BP 178/87
--- NOTE | 2019-03-24 02:06 | NUR ---
CALLS APPROPRIATELY TO GET UP TO BSC FOR MEDIUM VOIDS AND SMALL STOOLS APPROXIMATELY EVERY 90 MINUTES. CHOOSES NOT TO TAKE MIRALAX LAST EVENING. UP WITH MINIMAL ASSIST TAKES SHORT STEPS TO BSC, MUCH STRONGER THAN 3 DAYS AGO.
[2019-03-24 04:15] VITALS: BP 174/96
[2019-03-24 05:54] LABS: ABSOLUTE NEUTROPHILS 7.4 thou/uL (1.4-8.2); BASOPHILS 1.3 % (0.0-2.0); EOSINOPHILS 8.4 % (0.0-3.0); HEMATOCRIT 35.1 % (37.0-47.0); HEMOGLOBIN 11.2 gm/dL (12.0-15.0); LYMPHOCYTES 12.4 % (24.0-44.0); MCH 29.8 pg (26.0-34.0); MCV 93.1 fL (80.0-100.0); MONOCYTES 6.1 % (1.0-8.0); PLATELET COUNT 352 thou/uL (150-400); POLYS 71.8 % (36.0-66.0); RBC 3.77 mil/uL (4.20-5.00); RDW 19.4 % (10.5-14.5); WBC 10.3 thou/uL (4.0-11.0)
[2019-03-24 06:03] LABS: CALCIUM 10.2 mg/dL (8.5-10.1); CREATININE 0.6 mg/dL (0.6-1.0); POTASSIUM 4.4 mmol/L (3.5-5.1)
--- NOTE | 2019-03-24 19:41 | NUR ---
ASSUMED CARE OF PT AT 0715. PT IS A&OX4 AND VITAL SIGNS ARE STABLE. PT REPORTS PAIN IN LEFT HIP AND RIBS, PAIN MANAGED WITH LIDOCAINE PATCH AND PO PAIN MEDICAITONS, PARTICIPATED IN SCHEDULED THERAPIES. AMOXACILIN D/C'D. AM ACCU CHECK WNL. 4 RON NOTED TO LEFT HIP, SITE WELL APPROXIMATED, NO REDNESS, WARMTH, DRAINAGE, OR EDEMA NOTED. PT WBAT, CALLS APPROPRIATELY. SPECIAL CONTACT ISOLATION FOR C-DIFF CONTINUED. FALL PRECAUTIONS IN PLACE AND NURSING WILL CONTINUE TO MONITOR.
[2019-03-24 19:54] VITALS: BP 131/77
--- NOTE | 2019-03-25 00:35 | NUR ---
PT ASSESSMENT DONE AND VSS. MEDS GIVEN AND WELL TOLERATED. FALL PRECAUTIONS IN PLACE. HOURLY ROUNDING. CALL LIGHT IN REACH. SLEEPING WELL. WILL CONTINUE TO MONITOR.
[2019-03-25 08:30] VITALS: BP 157/69
--- NOTE | 2019-03-25 16:36 | NUR ---
ASSUMED CARE OF PT AT 0715. PT IS A&OX4 AND VITAL SIGNS ARE STABLE. PT REPORTS PAIN 3/10, MANAGED WITH LIDOCAINE PATCH, PARTICIPATED IN SCHEDULED THERAPIES. PT REPORTS INCREASED URINARY FREQUENCY AND URGENCY. ORDERS OBTAINED FOR UA. STOOLS SOFT AND FORMED. RON TO LEFT HIP, SURGICAL SITE WELL APPROXIMATED, NO REDNESS, EDEMA, DRAINAGE, OR WARMTH TO THE SITE, OPEN TO AIR. CALLS APPROPRIATLEY FOR ASSISTANCE AND FALL PRECAUTIONS IN PLACE AND NURSING WILL CONTINUE TO MONITOR.
[2019-03-25 18:15] LABS: URINE BILIRUBIN NEGATIVE (Negative); URINE BLOOD 3+ (Negative); URINE CLARITY CLOUDY; URINE COLOR YELLOW; URINE GLUCOSE-RANDOM* NEGATIVE (Negative); URINE KETONES NEGATIVE (Negative); URINE LEUKOCYTES-REFLEX 1+ (Negative); URINE NITRITE-REFLEX POSITIVE (Negative); URINE PROTEIN (DIPSTICK) NEGATIVE (Negative); URINE UROBILINOGEN 0.2 E.U./dl (0.2-1.0)
[2019-03-25 18:29] LABS: SQUAMOUS 0-3 Few /LPF (0-3); URINE WBC-REFLEX 6-15 Few /HPF (0-5)
[2019-03-25 18:30] LABS: BACTERIA-REFLEX >30 Many /HPF (None Seen); CASTS None Seen /LPF (None Seen); URINE RBC 3-10 Few /HPF (0-2)
[2019-03-25 18:31] LABS: CRYSTALS None Seen /LPF (None Seen)
[2019-03-25 20:33] VITALS: BP 150/80
--- NOTE | 2019-03-25 23:06 | NUR ---
PT ASSESSMENT COMPLETED AND VSS. MEDS GIVEN ORDERED AND WELL TOLERATED. FALL PRECAUTIONS IN PLACE. L HIP RON INTACT AND HEALING WELL. TRAMADOL HELPFUL FOR HIP AND RIB PAIN. + UTI. REY GREGORIO ORDERED CIPRO TO TREAT. BM THIS EVENING. SLEEPING WELL. WILL CONTINUE TO MONITOR FREQUENTLY. URINARY FREQUENCY CONTINUES.
[2019-03-26 07:45] VITALS: BP 120/74
[2019-03-26 08:00] VITALS: BP 120/74
--- NOTE | 2019-03-26 13:39 | NUR ---
ASSUMED CARE OF PT AT 0715. NIGHT NURSE REPORT THAT PT COULD USE SLEEPING AID TO ENHANCE HER SLEEP.PT IS A&OX4 AND VITAL SIGNS ARE STABLE. B/P 120/74, HR 77, GAVE MORNING MEDS BUT HELD NORVASC PER PARAMETER. PT REPORTS PAIN 6/10, MANAGED WITH LIDOCAINE PATCH, GAVE PRN TYLENOL. PAIN DOWN TO 3/10 DENIES NEEDS FOR PRN PAIN MED NOW. PT HAS BEEN UP TO DINNING ROOM FOR BREAKFAST AND LUNCH. HAD GOOD APPETITE. NEW UTI, ON CIPRO, NO REACTION NOTED. PT CONTINUE TO BE ON C-DIFF ISOLATION AND VACOMYCIN. HAD SMALL FORMED BM NOW.OFFERED SUPPORTIVE CARE. MEDS GIVEN. REASSEMENT PER CHART. RON TO LEFT HIP, SURGICAL SITE WELL APPROXIMATED, NO REDNESS, EDEMA, DRAINAGE, OR WARMTH TO THE SITE, OPEN TO AIR. CALLS APPROPRIATLEY FOR ASSISTANCE AND FALL PRECAUTIONS IN PLACE, RESTING IN BED. NURSING WILL CONTINUE TO MONITOR.
[2019-03-26 19:27] VITALS: BP 157/89
--- NOTE | 2019-03-26 23:01 | NUR ---
PT ASSESSMENT COMPLETED AND VSS. MEDS GIVEN ORDERED AND WELL TOLERATED. FALL PRECAUTIONS IN PLACE. SPECIAL CONTACT ISOLATION FOLLOWED. URINARY FREQUENCY CONTINUE. PT ON CIPRO FOR POSITIVE UTI. UP WITH ASST/GAIT TO BSC. SLEEPING WELL. WILL CONTINUE TO MONITOR FREQUENTLY. 0 BM SO FAR DURING SHIFT.
[2019-03-27 08:23] VITALS: BP 109/71
--- NOTE | 2019-03-27 10:21 | NUR ---
WOUND CONSULT; AN AREA OF PREVIOUS INJURY LIKELY FRICTION VS PRESSURE. PATIENT IS AMBULATORY WITH WALKER. DENIES PAIN. WOUND CARE TO LEFT BUTTOCKS; APPLY ZGUARD BID DISCUSSED WITH RN SUPPLIED WITH SALLY
--- NOTE | 2019-03-27 13:48 | NUR ---
ASSUMED CARE OF PT AT 0715. REPORT MELATONIN HELPED SHE SLEPT BETTER. LAST NIGHT. PT IS A&OX4 AND VITAL SIGNS ARE STABLE. B/P 109/71, HR 82, GAVE MORNING MEDS BUT HELD NORVASC PER PARAMETER. PT REPORTS PAIN 7/10 MANAGED WITH LIDOCAINE PATCH, GAVE PRN TRAMADOL PER REQUEST BEFORE THERAPIST. PT HAS BEEN UP TO DINNING ROOM FOR BREAKFAST AND LUNCH. HAD GOOD APPETITE. HAS SMALL SOFT BM TODAY. CONTINUE TO BE ON CIPRO FOR UTI NO REACTION NOTED. PT CONTINUE TO BE ON C-DIFF ISOLATION AND VACOMYCIN. WAS HERE AND SAID HE WANTS PT TO CONTINUE TO BE ON VANCOMYCIN IN ONE MORE WEEK. HAD SMALL FORMED BM NOW.OFFERED SUPPORTIVE CARE. MEDS GIVEN. REASSEMENT PER CHART. RON TO LEFT HIP, SURGICAL SITE WELL APPROXIMATED, NO REDNESS, EDEMA, DRAINAGE, OR WARMTH TO THE SITE, OPEN TO AIR. CALLS APPROPRIATLEY FOR ASSISTANCE AND FALL PRECAUTIONS IN PLACE, FINISHED THERAPY NOW. RESTING IN BED. NURSING WILL CONTINUE TO MONITOR.
[2019-03-27 17:53] LABS: URINE BILIRUBIN NEGATIVE (Negative); URINE BLOOD NEGATIVE (Negative); URINE CLARITY SL CLOUDY; URINE COLOR YELLOW; URINE GLUCOSE-RANDOM* NEGATIVE (Negative); URINE KETONES NEGATIVE (Negative); URINE LEUKOCYTES-REFLEX TRACE (Negative); URINE NITRITE-REFLEX NEGATIVE (Negative); URINE PROTEIN (DIPSTICK) NEGATIVE (Negative); URINE UROBILINOGEN 0.2 E.U./dl (0.2-1.0)
[2019-03-27 19:56] VITALS: BP 178/82
--- NOTE | 2019-03-28 03:18 | NUR ---
PATIENT UP TO BSC WITH MIN ASSIST A FEW TIMES OVERNIGHT FOR VOIDS, NO BM THIS SHIFT. PATIENT REMINDED THAT SHE WILL BE TAKING VANCOMYCIN SYRINGE FOUR TIMES A DAY FOR ANOTHER WEEK, RESPONDS THAT SHE IS USED TO IT NOW. Z-GUARD TO RIGHT BUTTOCK DESCRIBED DESITIN-LIKE TO PATIENT. PILLOW BEHIND LEFT SHOULDER TWICE AFTER BEING UP FOR VOIDING
[2019-03-28 06:15] LABS: ABSOLUTE NEUTROPHILS 4.7 thou/uL (1.4-8.2); BASOPHILS 1.1 % (0.0-2.0); EOSINOPHILS 10.6 % (0.0-3.0); HEMATOCRIT 32.9 % (37.0-47.0); HEMOGLOBIN 10.4 gm/dL (12.0-15.0); LYMPHOCYTES 14.7 % (24.0-44.0); MCH 29.7 pg (26.0-34.0); MCHC 31.5 g/dL (28.0-37.0); MCV 94.5 fL (80.0-100.0); PLATELET COUNT 308 thou/uL (150-400); POLYS 64.6 % (36.0-66.0); RBC 3.49 mil/uL (4.20-5.00); RDW 18.7 % (10.5-14.5); WBC 7.2 thou/uL (4.0-11.0)
[2019-03-28 06:27] LABS: CALCIUM 9.4 mg/dL (8.5-10.1); CREATININE 0.6 mg/dL (0.6-1.0); MAGNESIUM 1.8 mg/dL (1.8-2.4); POTASSIUM 3.4 mmol/L (3.5-5.1)
[2019-03-28 07:25] VITALS: BP 133/56
--- NOTE | 2019-03-28 13:12 | NUR ---
team meeting, recommendation: cont on isolation for c-diff. ortho to see if cielo can be taken out. needs assist with bill and pills. hh (pt, ot, st, sw and nursing vs snf if roommate unable to assist with medication, pills and meals. will cont following as needed for dc needs.
--- NOTE | 2019-03-28 16:07 | PLAN ---
[facility] [place] [address] REHAB UNIT PLAN OF CARE Name: MAURICIO SHEIKH Room #: 513-P ADM IN M.R.#: [id number] Admission: 03/17/19 Attend Phys: Ryan Jamil MD Discharge: Date of : 33 Report #: [id number] THIS REPORT FOR: //name// CC: Ryan Teixeiratasia Herndons DATE OF SERVICE: 03/20/2019 PROGRESS NOTE/OVERALL PLAN OF CARE SUBJECTIVE: The patient is seen back today in followup. She is in no distress. Last recorded temperature 97.8, pulse 82, respirations 20, and blood pressure 169/90. Hip incision appears to be benign. No focal calf swelling. She is working in therapies with transfers, mod assist. Gait mod assist 3 feet with front-wheeled walker. In occupational therapy, lower body dressing is dependent. In speech, she has [id number] cognitive deficits with severe memory deficits. ASSESSMENT: An 83-year-old white female with the following problem list: 1. Left femoral neck fracture, status post percutaneous screw fixation on 03/14/2019, weightbearing as tolerated. 2. Pulmonary abscess. She is on antibiotics. 3. Pulmonary fibrosis. 4. Multiple left rib fractures. 5. Hypertension. 6. Type 2 diabetes mellitus. 7. Question of memory deficits, premorbidly. 8. History of tobacco abuse. PLAN: The overall plan of care is based on the preadmission screen, post-admission physician evaluation, and information garnered from therapy assessments. 1. Estimated length of stay is probably at least 10 days to 2 weeks pending progress. 2. Medical prognosis is reasonably good. 3. Anticipated interventions includes the interdisciplinary acute inpatient rehabilitation program. 4. Anticipated functional outcomes would be for the patient to become modified independent with transfers, mobility, ADLs as well as improved cognition, so she can hopefully return back to the home setting. Goal will be maximally independent at a walker level. 5. Discharge destination would be living at home with her best friend in an apartment. She used a front-wheeled walker. 6. Expected therapy by discipline includes PT, OT, and speech 1 hour per day [address] [address] REHAB UNIT PLAN OF CARE Name: MAURICIO SHEIKH Room #: 513-P ADM IN ..#: [id number] Admission: 03/17/19 Attend Phys: Ryan Jamil MD Discharge: Date of : 33 Report #: [id number] each 5 days a week throughout the duration of the acute inpatient rehabilitation stay. <ELECTRONICALLY SIGNED> By: Ryan Jamil MD 03/28/19 1607 [id number] Ryan Jamil MD /PMT
--- NOTE | 2019-03-28 16:07 | H ---
[facility] [place] [address] HISTORY AND PHYSICAL Name: MAURICIO SHEIKH Room #: 513-P ADM IN M.R.#: [id number] Admission: 03/17/19 Attend Phys: Ryan Jamil MD Discharge: Date of : 33 Report #: [id number] THIS REPORT FOR: //name// CC: Ryan Jamil Romina Herndons DATE OF SERVICE: 03/17/2019 HISTORY AND PHYSICAL/POST-ADMISSION PHYSICIAN EVALUATION HISTORY OF PRESENT ILLNESS: The patient was admitted for acute in-hospital inpatient rehabilitation. Please see the full history and physical. I agree with the history, physical examination, assessment and plan. The patient had a fall at home, landing on her left side and was found to have a left femoral neck fracture. She underwent percutaneous screw on 03/14/2019 by Orthopedics and is allowed weightbearing as tolerated. It is noted that she will need an outpatient DEXA scan after she finishes rehabilitation. She has had trouble with elevated blood pressure and hypertensive medications have been adjusted. She has a prior history of a pulmonary abscess and was on daily antibiotics and follows at for this. She has been admitted for acute in-hospital inpatient rehabilitation. As far as past medical history, habits, social history: Please see the history and physical. ALLERGIES: No known drug allergies. MEDICATIONS: Please see the full medication listing as noted. REVIEW OF SYSTEMS: She did not complain of any chest pain, shortness of breath, abdominal discomfort, and some left hip discomfort as expected. PHYSICAL EXAMINATION: GENERAL: The patient is an 83-year-old female who was seen earlier, was in no specific distress. VITAL SIGNS: Last recorded temperature 98.1, pulse 86, respirations 20, and blood pressure 183/88. NEUROLOGIC: She has had some elevated blood pressures with adjustments will be made as per the nursing staff with the IV hydralazine as ordered. HEAD, EYES, EARS, NOSE, AND THROAT: Appeared to be benign. Facies were symmetric. She is small statured and thin. CHEST: Sounded clear to auscultation. CARDIOVASCULAR: Regular rate and rhythm. ABDOMEN: Bowel sounds positive, nontender. GENITOURINARY AND RECTAL: Deferred. EXTREMITIES: Functional range of motion of both upper extremities. Strength is [address] [address] HISTORY AND PHYSICAL Name: MAURICIO SHEIKH Room #: 513-P [facility] IN [facility].#: [id number] Admission: 03/17/19 Attend Phys: Ryan Jamil MD Discharge: Date of : 33 Report #: [id number] probably a grade 3+/5. Lower extremities can lift antigravity strength is probably 3+, hip is dressed, appears clean, dry. No focal calf swelling. She is needing some assistance at a min assist for short distance ambulation, mod assist for transfers. ASSESSMENT: An 83-year-old white female with the following problems: 1. Left femoral neck fracture, status post percutaneous screw on 03/14/2019. 2. Multiple left rib fractures. 3. Hypertension, has needed IV hydralazine. 4. Pulmonary abscess, on antibiotics. 5. Pulmonary fibrosis. 6. Type 2 diabetes mellitus. 7. Question of memory deficits. 8. History of tobacco abuse. PLAN: The patient has been admitted for acute in-hospital inpatient rehabilitation. From a postadmission physician evaluation perspective, there are no relevant changes since the preadmission screening. Please see the above noted review of prior and current medical and functional conditions and comorbidities. Please see the patient's previous and current functional status. As far as risk of complications, she has the above noted medical comorbidities. Initial plan of care involves the interdisciplinary acute inpatient rehabilitation program. Measurable functional goals would be for her to become modified independent with transfers, mobility at the walker level, so she can return back to the home setting. Prognosis is reasonably good with estimated length of stay probably at least 10 days to 2 weeks. We are having speech therapy evaluate her as well regarding cognition. Potential barriers would include her multiple medical comorbidities and decreased functional status. The patient meets diagnostic criteria for an acute in-hospital inpatient rehabilitation stay. She meets the medical necessity criteria. She does have the tolerance for therapies and has appropriate discharge goals back to the home setting. <ELECTRONICALLY SIGNED> By: Ryan Jamil MD 03/28/19 1607 [id number] 1211 Ryan Jamil MD /[facility]
--- NOTE | 2019-03-28 16:24 | NUR ---
DISCHARGE PLANNING. ANTICIPATED DISCHARGE PLANNED FOR 04/03 PER COTTON WRINGER. POST ACUTE RECOMMENDED AT DISCHARGE. PATIENT REFERRAL FAXED TO [facility] FOR POST ACUTE CARE NEEDS. CALL PLACED TO GRAHAM TO NOTIFY OF PATIENT REFERRAL AND DISCHARGE NEEDS. GRAHAM TO REVIEW PATIENT REFERRAL AND NOTIFY. FOLLOWING TO ASSIST.
[2019-03-28 19:35] VITALS: BP 138/84
--- NOTE | 2019-03-28 19:59 | NUR ---
assumed care of pt at 0715. pt is a&ox4 and vital signs are stable. pt reports pain to left ribs, managed with lidocaine patch, participated in scheduled therapies. special contact isolation for positive c-diff continued. pt had 2 large loose bowel movements this shift. this nurse contacted dr. whitten's office reguarding staple removal, no call back at this time. cielo to left hip, site is well approximated, no drainage, edema, redness, or warmth, left open to air per orders. calls appropriately. fall precautions in place and nursing will continue to monitor.
--- NOTE | 2019-03-29 02:57 | NUR ---
PT ASSESSMENT DONE AND VSS. MEDS GIVEN AND WELL TOLERATED. FALL PRECAUTIONS IN PLACE. SLEEPING WELL. HOURLY ROUNDING. CALL LIGHT IN REACH. WILL CONTINUE TO MONITOR.
[2019-03-29 07:38] VITALS: BP 149/72
--- NOTE | 2019-03-29 12:58 | NUR ---
Patient participated in community reintegration on 03/29/19 with PHYSICAL THERAPY. Refer to documentation by PTA. SAMI
--- NOTE | 2019-03-29 14:35 | NUR ---
Patient participated in therapeutic group on 03/29/19 with Physical Therapy. Refer to documentation by PT.
--- NOTE | 2019-03-29 18:27 | NUR ---
ASSUMED CARE OF PT AT 0715. REPORTS SLEPT GOOD. VSS ON RA. DR. JANSEN'S NURSE CALLED BACK AND GAVE ORDER TO REMOVE RON AND APPLIED STERI STRIP. NOTIFIED HER THAT PT WILL BE D/C NEXT WednesdayMarch. FOLLOW UP APPOINTMENT WITHIN D/C WEEK. FOLLOW UP APPOINTMENT ADD IN [facility]. RON REMOVED WITHOUT DIFFICULTY. OFFERED SUPPORTIVE CARE. REASSESSMENT PER CHART. MEDS GIVEN ORDERED. PT C/O LEFT HIP PAIN 07/27, PRN TYLENOL GIVE AND LIDOCAIN PATCH APPLIED. PT UP TO DINNING ROOM FOR MEALS AND PARTICIPATED WITH THERAPY. CONTINUE TO BE ON ISOLATION FOR CDIFF, NO BM TODAY. CONT BLADDER. CALLS APPROPRIATELY FOR TOILETING. FALL PRECAUTION IN PLACE. CALL LIGHT WITHIN REACH. WILL GIVE REPORT TO NIGHT NURSE TO CONTINUE TO MONITOR.
[2019-03-29 19:28] VITALS: BP 142/56
--- NOTE | 2019-03-30 02:29 | NUR ---
PT ASSESSMENT COMPLETED AND VSS. MEDS GIVEN ORDERED AND WELL TOLERATED. FALL PRECAUTIONS IN PLACE. SPECIAL CONTACT ISOLATION FOLLOWED. PRN PAIN MEDICATION WORKING WELL. UP TO THE BSC WITH ASST/GAIT/WALKER. VOIDING LARGE AMOUNT OF YELLOW URINE. 0 BM SO FAR DURING SHIFT. SLEEPING WELL. WILL CONTINUE TO MONITOR FREQUENTLY.
--- NOTE | 2019-03-30 07:53 | NUR ---
Patient participated in group therapy on 03/30/19 with occupational therapy. Refer to documentation by LY Mix.
[2019-03-30 10:35] VITALS: BP 108/66
--- NOTE | 2019-03-30 16:23 | NUR ---
ASSUMED CARE OF PT AT 0715. PT IS A&OX4 AND VITAL SIGNS ARE STABLE. LISINOPRIL AND AMLODIPINE HELD DUE TO LOW BLOOD PRESSURE THIS SHIFT. SPECIAL CONTACT ISOLATION FOR POSITIVE C-DIFF CONTINUED, PO VANCOMYCIN ADMINISTERED PER ORDERS. PT REPORTS LOOSE STOOLS ONCE THIS SHIFT. STERI STRIPS TO LEFT HIP C/D/I. ACCU CHECK IN AM. PT DENIES PAIN, PARTICIPATED IN SCHEDULED THERAPIES. CALLS APPROPRIATLEY, FALL PRECAUTIONS IN PLACE AND NURSING WILL CONTINUE TO MONITOR.
[2019-03-30 19:41] VITALS: BP 149/67
--- NOTE | 2019-03-30 22:28 | NUR ---
PT ASSESSMENT DONE AND VSS. MEDS GIVEN AND WELL RECEIVED. FALL PRECAUTIONS IN PLACE. SLEEPING WELL. UP TO THE BS COMMODE Q EVERY HR. HOURLY ROUNDING. CALL LIGHT IN REACH. WILL CONTINUE TO MONITOR.
[2019-03-31 09:30] VITALS: BP 155/82
--- NOTE | 2019-03-31 18:17 | NUR ---
ASSUMED CARE OF PT AT 0715. PT IS A&OX4 AND VITAL SIGNS ARE STABLE. PAIN REPORTED DURING THERAPIES, MANAGED WITH PO MEDICAITONS AND PT PARTICIPATED IN SCHEDULED THERAPIES. STERI STRIPS TO LLE C/D/I. SPECIAL CONTACT ISOLATION FOR POSITIVE C-DIFF. PT REPORTED 1 LOOSE CONTINENT STOOL THIS SHIFT. CALLS APPROPRIATELY FOR ASSISTANCE. FALL PRECATIONS IN PLACE AND NURSING WILL CONTINUE TO MONITOR.
[2019-03-31 19:55] VITALS: BP 130/74
--- NOTE | 2019-04-01 03:35 | NUR ---
ASSUMED CARE FROM DAY SHIFT PT SITTING UP IN BED WATCHING TV , PT REQUESTED ASSISSTANCE TO BATHROOM. PT REQUESTED TO BE WHEELED INTO BATHROOM. WHEN PT REQUESTED ONE HOUR LATER TO RETURN TO BATHROOM ,DRAWING PRESS OPERATOR OFFERED HER THE WALKER, PT TOLERATED WELL, GAIT STEADY. DENIES PAIN WHEN UP. PT RESTED WELL THROUGHOUT HOURLY ROUNDS, WILL CONITNUE WITH CURRENT PLAN OF CARE AND REPORT CHANGES OR ABNORMAL FINDINGS.
[2019-04-01 10:01] VITALS: BP 130/74
--- NOTE | 2019-04-01 18:37 | NUR ---
AAOX3 VERY PLESANT AND COOPERATIVE. WORKED WELL WITH THERAPIES. AMBULATED WITH SLOW STEADY GAIT USING ROLLER WALKER AND GAIT BELT. FAIR APPETITE. NO COMPLAINTS OF PAIN. ONLY 1 SOFT STOOL THIS SHIFT. WORKED WELL WITH THEARPIES.
[2019-04-01 19:25] VITALS: BP 133/74
--- NOTE | 2019-04-02 05:45 | NUR ---
Pt. has rested quietly at short intervals during the night when checked on during frequent rounds. She did c/o pain to her left hip and po naproxen given (see emar) with some relief noted. Pt. having urinary urgency and has been taken to the bathroom several times during the shift. Bed alarm is on.
[2019-04-02 08:15] VITALS: BP 138/81
--- NOTE | 2019-04-02 18:35 | NUR ---
AAOX3 FORGETFUL ASKS FREQUENTLY ABOUT DISCHARGE IN AM TO [facility]. TRANSFER TO / WITH STEADY GAIT SBA. TOOK ONE TRAMODOL FOR PAIN WITH GOOD RELIEF. GOOD APPETITE FOR MEALS. REMAINS IN ISOLATIN FOR C-DIFF. HAD ONE SMALL SOFT STOOL NO DIARRHEA THIS SHIFT.
[2019-04-02 19:45] VITALS: BP 134/78
--- NOTE | 2019-04-02 19:50 | HC ---
[facility] [place] [address] CONSULTATION Name: MAURICIO SHEIKH Room #: 513-P ADM IN M.R.#: [id number] Admission: 03/17/19 Attend Phys: Ryan Jamil MD Discharge: Date of : 33 Report #: [id number] THIS REPORT FOR: //name// CC: Ryan Jamil Romina Rogers DATE OF SERVICE: 03/26/2019 BEHAVIORAL STATUS EXAM ATTENDING PHYSICIAN: Ryan Jamil MD. SIDE BOSS: Adam Victoria, PhD. CLINICAL PRESENTATION: The patient is an 83-year-old female admitted to the rehabilitation unit at [facility] for a comprehensive inpatient rehabilitation program to improve functional mobility, activities of daily living and self-care, and mental status secondary to deficits that occurred following a fall at her home. She landed on her left side and sustained a left femoral neck fracture. She underwent a percutaneous screw placement on 03/14/2019 and is now admitted for inpatient rehabilitation. Her assessment on admission to the rehab unit is left femoral neck fracture, status post percutaneous screw, multiple left rib fractures, hypertension, pulmonary abscess and on antibiotics, pulmonary fibrosis, type 2 diabetes mellitus, question of memory deficits, and history of tobacco abuse. A complete description of her medical condition and history can be found in her medical record. Neuropsychological consultation was requested to provide assistance in the assessment of cognitive and emotional status and provide recommendations and services. Prior to this most recent admission, she was living at her home with a peer. She has no children. The patient is a high school graduate. 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 She indicates having discontinued driving about 3 years ago because of safety concerns. She describes having been independent with all other instrumental activities of daily living prior to this fall. TECHNIQUES UTILIZED: Clinical interview, review of medical records, staff consultation and behavioral observation, mini mental status exam 2 standard version, clock drawing, and verbal fluency assessment. EXAMINATION FINDINGS: The patient was alert and cooperative with the assessment. She accurately described events surrounding her admission. There is no evidence of aphasia. Her thoughts are logical and goal oriented. There is no evidence of thought disorder. She does not report auditory or visual [facility] [address] [place] [address] CONSULTATION Name: MAURICIO SHEIKH Room #: 513-P [facility] IN ..#: [id number] Admission: 03/17/19 Attend Phys: Ryan Jamil MD Discharge: Date of : 33 Report #: [id number] hallucinations. She describes her main symptoms to be pain and difficulty walking. Additional symptoms are reported to include appetite, memory, and depression. She does not report anxiety, difficulty with concentration, word finding, or sleep. Her performance on the MMSE 2 standard brief version was in the borderline range with a raw score of 12/16 and a T score 31, which is at the 3rd percentile. The patient is hard of hearing, which interfered with the assessment. She was 2/3 for initial registration, primarily because of hearing. She was 4/5 for orientation to time and 5/[address]. She was 1/3 for immediate recall of 3 items after a brief time delay and distraction. Her performance improved on the standard version of the MMSE 2 to a raw score of 25/30, which is a T score of 44 and percentile rank at 27. Performance on clock drawing is within normal limits. Letter fluency was in the average range with a raw score of 20, T score of 45, percentile rank of 31. Category fluency was extremely low with a raw score of 14, T score at 25, percentile rank of 1. Overall, total fluency was a raw score at 34, T score at 28, and percentile rank of 1. The patient is alert and oriented. Deficits are suggested in immediate recall and executive functioning. DIAGNOSTIC IMPRESSION: Neurocognitive disorder, unspecified, without behavior disorder -- extent to be determined, likely in the mild to moderate range. Unspecified depressive disorder. RECOMMENDATIONS: The patient would benefit from continued speech therapy to assist in compensatory strategies for areas of decreased cognition. Increased support at home including medication management, finances, and nutrition would also be of benefit to assist in her overall recovery. Consider reducing medication with sedating features as medically appropriate. She may also benefit from the use of an antidepressant medication to assist overall adjustment. Thank you very much for allowing me to provide the consultation on this patient. <ELECTRONICALLY SIGNED> By: Adam Victoria, PhD 04/02/19 1950 [id number] 1758 Adam Victoria, PhD /nt
--- NOTE | 2019-04-02 23:18 | NUR ---
PT ASSESSMENT DONE AND VSS. MEDS GIVEN AND WELL TOLERATED. FALL PRECAUTIONS IN PLACE. SLEEPING WELL. HOURLY ROUNDING. CALL LIGHT IN REACH. WILL CONTINUE TO MONITOR.
[2019-04-03 08:30] VITALS: BP 115/70
--- NOTE | 2019-04-03 09:30 | NUR ---
chart copy requested and completed by us on 4w, just need to put dc orders in when completed by md. bedside nurse to call report to [facility] [phone]. pt will be able to be transported by wheel chair van for dc today.
[2019-04-03] MEDS ORDERED: IPRAT-ALBUT 0.5-3 ML INH (11:16)
[2019-04-03] MEDS ORDERED: TYLENOL325 MG PO (11:16)
[2019-04-03] MEDS ORDERED: PROBIOTIC1 EAC1 PO (11:16)
[2019-04-03] MEDS ORDERED: NORVASC5 MG PO (11:16)
[2019-04-03] MEDS ORDERED: MELATONIN5 M1 PO (11:16)
--- NOTE | 2019-04-03 13:15 | NUR ---
PT DISCHARGING TODAY TO [facility] FOR SKILLED STAY. FAXED DC ORDERS/SUMMARY TO FACILITY SPOKE WITH GRAHAM IN ADM SHE RECEIVED DC ORDERS AND ARRANGED TRANSPORT BY [facility] FOR [phone] TODAY. NOTIFIED PT'S AUTH. CONTACT JACKIE (FRIEND) OF DC AND TIME OF TRANSPORT. UNIT NOTIFIED AND CHART COPY PER US. UNIT TO CALL REPORT TO [phone].
--- NOTE | 2019-04-03 13:53 | NUR ---
ASSUMED CARE OF THE PT AT 0700. PT IS A&OX3 AND SOMEWHAT FORGETFUL AT TIMES. SUTURES ARE DRY AND INTACT. PT IS ANXIOUS ABOUT DISCHARGING, REINFORCED WHERE AND WHEN DISCHARGE WILL TAKE PLACE. LIDOCAINE PATCH TO R LOWER BACK AREA APPLIED. CONTACTED JACKIE PURDY, TO ADVISE ABOUT DISCHARGING. LUNG SOUNDS ARE CLEAR AND DIMINISHED. PULSES ARE STRONG, SKIN IS DRY AND INTACT AND WARM WITH A CAP REFILL OF LESS THAN 3 SECONDS. FALL PRECAUTIONS ARE WITHIN REACH AND BED// CHAIR ALARM IN PLACE WITH BED IN THE LOWEST POSITION. WILL CONTINUE TO MONITOR THE PT.
--- NOTE | 2019-04-03 15:17 | NUR ---
CM NOTIFIED BY BEDSIDE NURSE THAT PT DC PLACED ON HOLD FOR TODAY. CM TEAM TO NOTIFIED [facility] NOT TO SEND TRANSPORT TODAY
[2019-04-03 19:38] VITALS: BP 139/78
--- NOTE | 2019-04-04 02:29 | NUR ---
PT ALERT AND ORIENTED X 4. AMB TO BR WITH WALKER AND ASSIST X 1 WITHOUT DIFFICULTY. LEFT HIP INCISION C/D/I WITH STERI-STRIPS. PT DENIES PAIN OR DISCOMFORT. BED ALARM ON FOR SAFETY. PT APPEARS TO BE SLEEPING ON HOURLY ROUNDS.
[2019-04-04 08:00] VITALS: BP 139/78
[2019-04-04 09:31] VITALS: BP 139/78
--- NOTE | 2019-04-04 09:53 | NUR ---
PT CLEARED BY FOR DC TODAY TO [facility], CHART COPY ALREADY COMPLETED AND BEDSIDE NURSE TO CALL REPORT TO [phone]. WHEEL CHAIR TRANSPORTATION PROVIDED BY [facility].
[2019-04-04] MEDS ORDERED: ZANAFLEX4 MG PO (10:00)
--- NOTE | 2019-04-04 11:34 | NUR ---
ASSUMED CARE OF PT AT 0715. REPORTS SLEPT GOOD. VSS ON RA. PT HAS BEEN UP WITH THERAPY TODAY. PT C/O LEFT HIP PAIN 07/27, PRN TYLENOL GIVE AND LIDOCAIN PATCH APPLIED. OFFERED SUPPORTIVE CARE. REASSESSMENT PER CHART. MEDS GIVEN ORDERED. PT UP TO DINNING ROOM FOR BREAKFAST. CONTINUE TO BE ON ISOLATION FOR CDIFF, NO BM TODAY. LAST BM WAS YESTERDAY AND IT WAS FORMED PER STAFF. DR. FRANCIS WAS SEEN PT LAST WEEK ON Mar AND SAID HE WANTS PT TO BE ON VANCOMYCIN 1 MORE WEEK. PT WILL DC TODAY. THIS DRUG ABUSE TREATMENT SPECIALIST CALLED DR. FRANCIS'S OFFICE AND WAITING FOR DR. FRANCIS TO CALL BACK. PT CONT BLADDER. PT GETS UP WITH WALKER AND GB. CALLS APPROPRIATELY FOR TOILETING. FALL PRECAUTION IN PLACE. CALL LIGHT WITHIN REACH. PT WILL BE DISCHARGE TO [facility] TODAY. WILL CHECK WITH CM AND CALL [place] FOR THE REPORT. WILL CONTINUE TO MONITOR.
== END 2019-04-04 13:42 | DRG 535 ==
PROVIDERS: Hospitalist; Internal Medicine; Nurse Practitioner; Nurse Practitioner Family; ADMIT Physical Medicine & Rehabilitation
DX: S72.002A Fracture of unspecified part of neck of left femur, initial encounter for closed fracture (principal); J85.2 Abscess of lung without pneumonia; E43 Unspecified severe protein-calorie malnutrition; S22.42XA Multiple fractures of ribs, left side, initial encounter for closed fracture; A04.72 Enterocolitis due to Clostridium difficile, not specified as recurrent; N39.0 Urinary tract infection, site not specified; Z68.1 Body mass index [BMI] 19.9 or less, adult; E11.9 Type 2 diabetes mellitus without complications; I10 Essential (primary) hypertension; J84.10 Pulmonary fibrosis, unspecified; R41.9 Unspecified symptoms and signs involving cognitive functions and awareness; F32.9 Major depressive disorder, single episode, unspecified; E87.6 Hypokalemia; J44.9 Chronic obstructive pulmonary disease, unspecified; E83.42 Hypomagnesemia; R53.1 Weakness; W18.39XA Other fall on same level, initial encounter; Y93.01 Activity, walking, marching and hiking; Y92.091 Bathroom in other non-institutional residence as the place of occurrence of the external cause; Y99.8 Other external cause status; Z87.891 Personal history of nicotine dependence; Z79.899 Other long term (current) drug therapy; Z79.82 Long term (current) use of aspirin
CPT/HCPCS: 10112

== ENCOUNTER → 2019-05-24 | Outpatient (CLI) | payer OTHER, MEDICARE ==
[~2019-05-24] MED LIST changes: +ACETAMINOPHEN500 MG PO; +ACIDOPHILUS1 EACH PO; +AMOXICILLI400 MG/5 M PO; +COLACE100 MG PO; +ENSURE LIQUID237 M1 PO; +HEPARIN 1,1000 UNIT/ SUBQ; +HUMALOG100 UNIT/1 SUBQ; +HYDRALAZINE 10M10 MG IV PUSH; +IPRAT-ALBUT 0.5-3 ML INH; +LIDOCAINE PAIN1 EACH TRANSDERM; +LISINOPRIL2.5 MG PO; +MELATONIN5 M1 PO; +NORVASC5 MG PO; +PROBIOTIC1 EAC1 PO; +REMERON15 M2 PO; +TRAMADOL 50 MG50 MG PO; +TYLENOL325 MG PO; +ZANAFLEX4 MG PO
== END ==
LOC: CAT 09:59
DX: S72.092D Other fracture of head and neck of left femur, subsequent encounter for closed fracture with routine healing (principal); M70.62 Trochanteric bursitis, left hip; M16.12 Unilateral primary osteoarthritis, left hip; I70.292 Other atherosclerosis of native arteries of extremities, left leg; X58.XXXD Exposure to other specified factors, subsequent encounter

== ENCOUNTER 2019-05-31 08:35 | Inpatient (IN) | payer OTHER, MEDICARE ==
[~2019-05-31] VITALS: Ht 160 cm; Wt 39.0 kg
[2019-05-31 09:37] VITALS: BP 152/75
[2019-05-31 09:48] LABS: HEMATOCRIT 38.4 % (37.0-47.0); HEMOGLOBIN 12.5 gm/dL (12.0-15.0); MCHC 32.5 g/dL (28.0-37.0); MCV 92.4 fL (80.0-100.0); RBC 4.15 mil/uL (4.20-5.00); RDW 15.5 % (10.5-14.5)
[2019-05-31 09:59] LABS: ALBUMIN 3.1 g/dL (3.4-5.0); CALCIUM 9.2 mg/dL (8.5-10.1); CREATININE 0.7 mg/dL (0.6-1.0); POTASSIUM 3.7 mmol/L (3.5-5.1)
[2019-05-31 10:00] LABS: PROTIME 10.2 Seconds (9.3-11.4)
[2019-05-31 10:38] LABS: URINE BILIRUBIN NEGATIVE (Negative); URINE BLOOD NEGATIVE (Negative); URINE CLARITY CLEAR; URINE COLOR YELLOW; URINE GLUCOSE-RANDOM* NEGATIVE (Negative); URINE KETONES NEGATIVE (Negative); URINE LEUKOCYTES 2+ (Negative); URINE NITRITE POSITIVE (Negative); URINE PROTEIN (DIPSTICK) NEGATIVE (Negative); URINE SPECIFIC GRAVITY 1.015 (1.005-1.035); URINE UROBILINOGEN 0.2 E.U./dl (0.2-1.0)
[2019-05-31 10:47] LABS: BACTERIA >30 Many /HPF (None Seen); CASTS None Seen /LPF (None Seen); CRYSTALS None Seen /LPF (None Seen); SQUAMOUS 0-3 Few /LPF (0-3); URINE RBC None Seen /HPF (0-2); URINE WBC None Seen /HPF (0-5)
--- NOTE | 2019-05-31 12:43 | EKG ---
[facility] [place] [place] [address] ELECTROCARDIOGRAM REPORT Name: MAURICIO SHEIKH Room #: 150-4 ADM IN M.R.#: [id number] Admission: 05/31/19 Attend Phys: Wil Sutherland MD Discharge: Date of : 33 Report #: [id number] THIS REPORT FOR: cc: Romina Rogers MD, Melissa J. MD Lammoglia, Francisco J. MD ~ THIS REPORT FOR: //name// [facility] Test Date: 2019-05-31 Test Time: 09:07:42 Pat Name: MAURICIO SHEIKH Department: Room: 150 4 Gender: F Crane Rigger: INO : 1935 Requested By: Wil Sutherland Order Number: [id number] MD: Nahun Tuttle Measurements Intervals [place] Rate: 86 P: 94 TX: 169 QRS: 52 QRSD: 82 T: -4 QT: 374 QTc: 448 Interpretive Statements Sinus rhythm left atrial enlargement Probable left ventricular hypertrophy Nonspecific ST-T wave changes Baseline wander in lead(s) Compared to ECG 03/13/2019 16:37:23 No Significant difference Electronically Signed On 05-31-2019 12:15:06 FISHER TERRAPIN by Nahun Tuttle [email or web address] <ELECTRONICALLY SIGNED> By: Nahun Tuttle MD 05/31/19 1215 6 09 Nahun Tuttle MD /EPI
[2019-05-31 14:32] VITALS: BP 99/44
--- NOTE | 2019-05-31 18:49 | NUR ---
PT RECEIVED FROM REC RM AT 1445 AWAKE BUT DROWSY AND IN NO ACUTE DISTRESS. LT HIP DSNG DRY AND INTACT. ICE PACK TO HIP. SCD'S AND ABD PILLOW IN PLACE. PT GIVEN CLEAR LIQUIDS W/O NAUSEA. HOSPITALIST CONSULTED FOR MED MGMT. FRIEND UPDATED ON PT CONDITION.
[2019-05-31 19:40] VITALS: BP 91/43
--- NOTE | 2019-06-01 01:27 | NUR ---
PT DENIED PAIN SO FAR.UP WITH ASSIT X1-2 TO BSC.DRGS ON HER L HIP C/D/I.PT CONT ON IVF ORDERED.ABDUCTOR PILLOW AND SCD IN PLACE.PT ON 2L/NC FOR COMFORT.PT ABLE TO MAKE HER NEEDS KNOWN.FALL PRECAUTIONS IN PLACE,CALL LIGHT WITHIN REACH.
[2019-06-01 04:33] VITALS: BP 111/47
[2019-06-01 07:28] VITALS: BP 130/56
--- NOTE | 2019-06-01 11:03 | NUR ---
chart review. pt was dc to [facility] last time she was here on acute rehab. she came in for hip surgery left. prior to going to skilled at [facility], she live at ground level apartment with friend carolyn. not driving prior to acute rehab. will cont following as needed for dc needs. " have walker and maybe wheel chair at home, we both cook and i manage own medication"/josé luis.
[2019-06-01 15:23] LABS: ALBUMIN 2.7 g/dL (3.4-5.0); CALCIUM 8.8 mg/dL (8.5-10.1); CREATININE 0.9 mg/dL (0.6-1.0); POTASSIUM 4.6 mmol/L (3.5-5.1); TOTAL BILIRUBIN 0.8 mg/dL (<0.1-1.0); TOTAL PROTEIN 5.7 g/dL (6.4-8.2)
[2019-06-01 15:57] VITALS: BP 105/73
--- NOTE | 2019-06-01 18:41 | NUR ---
VSS-AFEBRILE. OOB TO CHAIR FOR HALF OF SHIFT. REMAINED CONTINENT THROUGH DAY. APPETITE HAS IMPROVED WITH EACH MEAL, PATIENT IS ABLE TO FEED HERSELF. FALL PRECATIONS IN PLACE, CALLS APPROPRIATELY FOR ANY NEEDED ASSISTANCE.
[2019-06-01 19:17] VITALS: BP 116/58
--- NOTE | 2019-06-02 03:17 | NUR ---
PT ASSESSED AT START OF SHIFT.PT'S VS ATBLEBUT SAT AT 90%.PT WAS PUT ON 2L/NC.PT UNABLE TO LEAVE O2 ON.PT'S SAT DROPPED TO THE MID 80'S WHEN PT REMOVED HER TUBING.PT MONITORED AND REPOSITIONED WHILE IN BED.PT UP TO BSC.PT'S DRSG ON HER L HIP REINFORCED BC PT REMOVED IT,C/D/I NOW.PT RESTING ON HER BED AT THIS TIME.FALL PRECAUTIONS IN PLACE,CALL LIGHT WITHIN REACH.
[2019-06-02 03:57] VITALS: BP 124/51
[2019-06-02 07:17] VITALS: BP 112/89
[2019-06-02 10:26] LABS: ABSOLUTE NEUTROPHILS 7.8 thou/uL (1.4-8.2); BASOPHILS 0.3 % (0.0-2.0); EOSINOPHILS 0.2 % (0.0-3.0); LYMPHOCYTES 6.8 % (24.0-44.0); MCH 30.4 pg (26.0-34.0); MCHC 32.6 g/dL (28.0-37.0); MCV 93.2 fL (80.0-100.0); MONOCYTES 9.3 % (1.0-8.0); POLYS 83.4 % (36.0-66.0); RDW 15.5 % (10.5-14.5); WBC 9.4 thou/uL (4.0-11.0)
[2019-06-02 10:27] LABS: HEMOGLOBIN 5.7 gm/dL (12.0-15.0)
[2019-06-02 10:29] LABS: HEMATOCRIT 17.5 % (37.0-47.0); PLATELET COUNT 302 thou/uL (150-400); RBC 1.87 mil/uL (4.20-5.00)
--- NOTE | 2019-06-02 13:12 | NUR ---
ORDER PER DR HAY TO TRANSFER TO [facility] BED FOR CLOSER MONITORING. BLOOD BANK IS PROCURING TYPE AB BLOOD FROM ANOTHER LOCATION, AWAITING ARRIVAL OF BLOOD. [facility] HAS BEEN NOTIFIED OF TRANSFER ORDERS, AWAITING AVAILABILITY OF CCT BED.
[2019-06-02 14:01] VITALS: BP 126/53; BP 138/62; BP 140/60; BP 146/81
[2019-06-02 15:35] VITALS: BP 117/58
[2019-06-02 18:35] LABS: HEMATOCRIT 26.2 % (37.0-47.0)
[2019-06-02 18:40] LABS: HEMOGLOBIN 8.8 gm/dL (12.0-15.0)
[2019-06-02 19:19] VITALS: BP 109/51
[2019-06-02 20:16] LABS: URINE BILIRUBIN NEGATIVE (Negative); URINE BLOOD NEGATIVE (Negative); URINE CLARITY CLEAR; URINE COLOR YELLOW; URINE GLUCOSE-RANDOM* NEGATIVE (Negative); URINE KETONES NEGATIVE (Negative); URINE LEUKOCYTES-REFLEX NEGATIVE (Negative); URINE NITRITE-REFLEX NEGATIVE (Negative); URINE PROTEIN (DIPSTICK) NEGATIVE (Negative); URINE SPECIFIC GRAVITY 1.015 (1.005-1.035); URINE UROBILINOGEN 0.2 E.U./dl (0.2-1.0)
--- NOTE | 2019-06-03 02:55 | NUR ---
ASSUMED CAR OF PT AT 1899.PT WAS ASLEEP ON HER BED AT START OF SHIFT.PT DENIED PAIN SO FAR.PT INCONT TWICE NOW,PERICARE DONE WITH EACH INCONTINENCE.PT ON BEDREST PER REPORT.CALLED CARINE TO SEE IF PT NEEDED THE SECOND UNIT OF BLOOD SINCE HER HGB WAS UP TO 8.8, CONSUMER INSIGHT MANAGER STATED THAT THE PT DOESN'T NEED THE SECOND UNIT OF BLOOD.PT CONT ON HER DAILY IV ABX ORDERED.FALL PRECAUTIONS IN PLACE,CALL LIGHT WITHIN REACH.
[2019-06-03 04:45] VITALS: BP 140/67
[2019-06-03 10:41] LABS: ABSOLUTE NEUTROPHILS 8.6 thou/uL (1.4-8.2); BASOPHILS 0.7 % (0.0-2.0); EOSINOPHILS 1.6 % (0.0-3.0); HEMATOCRIT 25.6 % (37.0-47.0); HEMOGLOBIN 8.5 gm/dL (12.0-15.0); LYMPHOCYTES 9.4 % (24.0-44.0); MCHC 33.1 g/dL (28.0-37.0); MCV 93.7 fL (80.0-100.0); MONOCYTES 9.2 % (1.0-8.0); PLATELET COUNT 307 thou/uL (150-400); POLYS 79.1 % (36.0-66.0); RBC 2.73 mil/uL (4.20-5.00); RDW 15.5 % (10.5-14.5); WBC 10.9 thou/uL (4.0-11.0)
[2019-06-03 11:10] LABS: ALBUMIN 2.4 g/dL (3.4-5.0); CALCIUM 8.5 mg/dL (8.5-10.1); CREATININE 0.6 mg/dL (0.6-1.0); MAGNESIUM 1.8 mg/dL (1.8-2.4); PHOSPHORUS 2.4 mg/dL (2.5-4.9); POTASSIUM 3.7 mmol/L (3.5-5.1); TOTAL BILIRUBIN 0.6 mg/dL (<0.1-1.0); TOTAL PROTEIN 5.5 g/dL (6.4-8.2)
[2019-06-03 12:04] VITALS: BP 151/62
--- NOTE | 2019-06-03 16:10 | NUR ---
VSS-AFEBRILE. LUNGS CLEAR/DIMINISHED, REMAINS ON 2LNC. OOB WITH OT/PT, SPENT 2 HOURS IN CHAIR WELL-TOLERATED WELL. APPETITE IMPROVING, NEEDS ASSISTANCE WITH TRAY SET UP. C/O LEFT HIP PAIN THAT IS WELL RELIEVED WITH PO PAIN MEDICATION. TURNED AND OFFERED HYDRATION EVERY TWO HOURS FOR COMFORT. FALL PRECAUTIONS IN PLACE.
[2019-06-03 19:09] VITALS: BP 170/75
[2019-06-03 19:33] VITALS: BP 132/59
[2019-06-04 04:25] VITALS: BP 130/55
[2019-06-04 05:19] LABS: ABSOLUTE NEUTROPHILS 6.3 thou/uL (1.4-8.2); BASOPHILS 0.6 % (0.0-2.0); EOSINOPHILS 4.9 % (0.0-3.0); HEMOGLOBIN 7.9 gm/dL (12.0-15.0); LYMPHOCYTES 16.4 % (24.0-44.0); MONOCYTES 9.5 % (1.0-8.0); PLATELET COUNT 324 thou/uL (150-400); POLYS 68.6 % (36.0-66.0); RBC 2.55 mil/uL (4.20-5.00); WBC 9.2 thou/uL (4.0-11.0)
[2019-06-04 05:51] LABS: CALCIUM 8.8 mg/dL (8.5-10.1); CREATININE 0.4 mg/dL (0.6-1.0); PHOSPHORUS 2.5 mg/dL (2.5-4.9); POTASSIUM 3.3 mmol/L (3.5-5.1)
--- NOTE | 2019-06-04 06:13 | NUR ---
PT LYING IN BED. DENIES NEED FOR PAIN MEDICATION. RESTING COMFORTABLY. NO NEEDS VOICED. CALL LIGHT WITHIN REACH. FREQUENT OBSERVATION.
[2019-06-04 08:26] VITALS: BP 154/60
[2019-06-04 17:03] VITALS: BP 125/58
[2019-06-05 00:38] VITALS: BP 137/62
[2019-06-05 04:50] VITALS: BP 135/57
[2019-06-05 05:20] LABS: ABSOLUTE NEUTROPHILS 7.1 thou/uL (1.4-8.2); BASOPHILS 0.6 % (0.0-2.0); EOSINOPHILS 6.3 % (0.0-3.0); HEMATOCRIT 24.3 % (37.0-47.0); HEMOGLOBIN 7.9 gm/dL (12.0-15.0); LYMPHOCYTES 14.6 % (24.0-44.0); MCH 30.8 pg (26.0-34.0); MCHC 32.5 g/dL (28.0-37.0); MCV 94.7 fL (80.0-100.0); MONOCYTES 9.5 % (1.0-8.0); PLATELET COUNT 372 thou/uL (150-400); RBC 2.56 mil/uL (4.20-5.00); RDW 15.3 % (10.5-14.5); WBC 10.2 thou/uL (4.0-11.0)
[2019-06-05 06:02] LABS: CALCIUM 8.6 mg/dL (8.5-10.1); CREATININE 0.5 mg/dL (0.6-1.0); POTASSIUM 3.7 mmol/L (3.5-5.1)
--- NOTE | 2019-06-05 06:18 | NUR ---
PT LYING IN BED. VOIDING PER BEDPAN WITH SOME INCONTINENCE AT NIGHT. LORTAB PROVIDING PAIN RELIEF. RESTING COMFORTABLY. NO NEEDS VOICED. CALL LIGHT WITHIN REACH. FREQUENT OBSERVATION.
[2019-06-05 09:02] VITALS: BP 145/64
[2019-06-05] MEDS ORDERED: NORCO 5-325 TA1 EAC1 PO (14:20)
--- NOTE | 2019-06-05 14:29 | O ---
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 PROCEDURE: Left hip hemiarthroplasty with hardware removal. SURGEON: Dr. Wil Sutherland. BUCKRAM SEWER: Sharon Dejesus. ANESTHESIA: General. ESTIMATED BLOOD LOSS: Minimal. DRAINS: No drains. TOURNIQUET TIME: Zero. ESTIMATED BLOOD LOSS: 200 mL. COMPLICATIONS: There were no complications. DESCRIPTION OF PROCEDURE: The patient was brought to the operating room where she was placed under general anesthesia. Once under adequate general anesthesia, she was placed onto the operative table in a lateral decubitus position. A lateral incision over the left hip was then prepped and draped in sterile manner. A lateral incision approximately 14 cm in length was made over the tip of the greater trochanter. Dissection was carried down to the previous screw heads, which were identified. The 7.3 mm cannulated screws, 3 in total were then removed with the 7.3 mm cannulated screwdriver. A posterior approach to the hip was then made, elevating the piriformis along with the short external rotators at the hip. Exposure of the fracture site and the head was achieved. The head had collapsed considerably, [facility] [address] [place] [address] OPERATIVE REPORT Name: MAURICIO SHEIKH Blaire Room #: 445-P [facility] IN [facility].#: [id number] Admission: 05/31/19 Attend Phys: Wil Sutherland MD Discharge: Date of : 33 Report #: [id number] with a rongeur. The acetabulum and head was sized as a 45 femoral head component. This was trialled for. The femoral neck was then cut to length with an oscillating saw. The femoral canal was then reamed and broached to a size 9 stem. The trial components were then placed with a size 9 stem and a bipolar head component. This appeared to be very stable; therefore, the trial components were removed and the femoral canal was then prepared for cementation. It was irrigated copiously. Once prepared, the distal cement stopper was placed and the cement was then placed. The femoral stem was then placed into position. This was a size 9 femoral stem from [employer]. Once the cement had set, the bipolar femoral head component was placed on to the neck and a reduction was then achieved. Excellent stability was achieved once reduced. The wound was irrigated copiously and closed with #2 FiberWire in the capsular layer, #5 FiberWire to repair the piriformis back to the fossa. During the placement of this, a trochanteric fracture posteriorly was identified. This was fixed with suture via the #5 FiberWire suture. The wound was then irrigated once again copiously and closed with #1 Vicryl in the tensor fascia, 2-0 Vicryl in the subcutaneous tissues and cielo were used for the skin. Wounds were dressed with Xeroform, 4 x 4s, and sterile soft compressive dressing was placed. There were no complications from the procedure. The patient tolerated the procedure well and went to the recovery room without incident. <ELECTRONICALLY SIGNED> By: Wil Sutherland MD 06/05/19 1429 1212 1244 Wil Sutherland MD /nt
--- NOTE | 2019-06-05 15:41 | NUR ---
PT DISCHARGING TODAY BACK TO [facility] FOR SKILLED STAY FAXED DC ORDERS/SUMMARY TO FACILITY SPOKE WITH GRAHAM IN ADM SHE RECEIVED ORDERS AND ARRANGED TRANSPORTATION BY [facility] FOR [phone] TODAY. NOTIFIED PT'S EMERGENCY CONTACT (JACKIE) OF DC AND TIME OF TRANSPORT. UNIT NOTIFIED AND CHART COPY PER US. RN TO CALL REPORT TO [phone].
--- NOTE | 2019-06-05 15:46 | NUR ---
TEAM INDICATED THAT PT IS MEDICALLY STABLE TO DC TO [facility] THIS DAY. CHART COPY ORDERED. ORDERS FAXED. PT AND PT'S ROOMMATE AWARE AND AGREEABLE. TRANSPORT ARRANGED FOR 1600. NURSE GIVEN NUMBER FOR REPORT NO OTHER CM INTERVETNION INDICATED. CASE CLOSED.
--- NOTE | 2019-06-05 16:30 | NUR ---
PATIENT DISCHARGED AT THIS TIME. IV ACSESS DCD. ALL BELONGINGS PACKED AND SENT WITH PATIENT. W/C VAN FROM FACILITY HERE TO TRANSPORT PATIENT. PT W/O PAIN OR RESP DISTRESS AT DISCHARGE
== END 2019-06-05 16:44 | DRG 469 ==
LOC: TBA 08:35 → 4S 08:35 → OR 12:03 → EDSTATUS 12:03 → PRE 12:06 → 4S 14:24
PROVIDERS: Internal Medicine; Orthopaedic Surgery Sports Medicine; ADMIT Orthopaedic Surgery Foot and Ankle Surgery
PROC: 0SRS0J9 Replacement of Left Hip Joint, Femoral Surface with Synthetic Substitute, Cemented, Open Approach (ICD-10-PCS; principal; 2019-05-31)
PROC: 0QP704Z Removal of Internal Fixation Device from Left Upper Femur, Open Approach (ICD-10-PCS; 2019-05-31)
PROC: 30233N1 Transfusion of Nonautologous Red Blood Cells into Peripheral Vein, Percutaneous Approach (ICD-10-PCS; 2019-06-02)
DX: S72.002A Fracture of unspecified part of neck of left femur, initial encounter for closed fracture (principal); E43 Unspecified severe protein-calorie malnutrition; N39.0 Urinary tract infection, site not specified; D62 Acute posthemorrhagic anemia; Z68.1 Body mass index [BMI] 19.9 or less, adult; I10 Essential (primary) hypertension; E11.9 Type 2 diabetes mellitus without complications; F32.9 Major depressive disorder, single episode, unspecified; K59.00 Constipation, unspecified; F03.90 Unspecified dementia, unspecified severity, without behavioral disturbance, psychotic disturbance, mood disturbance, and anxiety; X58.XXXA Exposure to other specified factors, initial encounter; Y93.89 Activity, other specified; Y92.89 Other specified places as the place of occurrence of the external cause; Y99.8 Other external cause status; Z87.891 Personal history of nicotine dependence; Z87.01 Personal history of pneumonia (recurrent)
CPT/HCPCS: 10102; 50010; 50101; 50382; 50414; 51057; 51130; 51225; 51226; 51412; 53000; 56525; 56530; 56531; 57103; 57117; 62110; 62900; 70005

== ENCOUNTER 2019-06-14 07:51 | Emergency (ER) | payer OTHER, MEDICARE ==
[~2019-06-14] VITALS: Ht 157.5 cm; Wt 42.2 kg
[~2019-06-14 07:51] MED LIST changes: +NORCO 5-325 TA1 EAC1 PO
[2019-06-14] MEDS ORDERED: IRON325 PO (08:04)
[2019-06-14] MEDS ORDERED: LOVENOX30 MG/0.3 SUBQ (08:05)
[2019-06-14 08:37] LABS: HEMATOCRIT 31.5 % (37.0-47.0); MCH 30.4 pg (26.0-34.0); MCHC 31.9 g/dL (28.0-37.0); MCV 95.3 fL (80.0-100.0); RBC 3.3 mil/uL (4.20-5.00); RDW 16.4 % (10.5-14.5); WBC 13.1 thou/uL (4.0-11.0)
[2019-06-14 08:45] LABS: CALCIUM 8.9 mg/dL (8.5-10.1); CREATININE 0.6 mg/dL (0.6-1.0); POTASSIUM 3.8 mmol/L (3.5-5.1)
[2019-06-14 08:56] LABS: APTT 28.3 Seconds (24.5-32.8); PROTIME 10.3 Seconds (9.3-11.4)
[2019-06-14 11:21] VITALS: BP 124/65
== END 2019-06-14 11:22 | disposition home or self-care (01) ==
LOC: ER 07:51
PROVIDERS: Emergency Medicine
DX: S00.12XA Contusion of left eyelid and periocular area, initial encounter (principal); M25.552 Pain in left hip; I10 Essential (primary) hypertension; Z87.891 Personal history of nicotine dependence; Z79.01 Long term (current) use of anticoagulants; W06.XXXA Fall from bed, initial encounter; Y93.89 Activity, other specified; Y92.89 Other specified places as the place of occurrence of the external cause; Y99.8 Other external cause status

== ENCOUNTER 2019-06-23 17:36 | Inpatient (IN) | payer OTHER, MEDICARE ==
[~2019-06-23] VITALS: Ht 157.5 cm; Wt 43.3 kg
[~2019-06-23 17:36] MED LIST changes: +IRON325 PO; +LOVENOX30 MG/0.3 SUBQ
[2019-06-23 17:38] VITALS: BP 130/75
[2019-06-23 18:30] LABS: ABSOLUTE NEUTROPHILS 11.1 thou/uL (1.4-8.2); BASOPHILS 0.6 % (0.0-2.0); HEMATOCRIT 31.8 % (37.0-47.0); HEMOGLOBIN 10.1 gm/dL (12.0-15.0); LYMPHOCYTES 6.9 % (24.0-44.0); MCH 30.5 pg (26.0-34.0); MCHC 31.7 g/dL (28.0-37.0); MCV 96.1 fL (80.0-100.0); MONOCYTES 5.9 % (1.0-8.0); PLATELET COUNT 475 thou/uL (150-400); POLYS 85.6 % (36.0-66.0); RBC 3.31 mil/uL (4.20-5.00); RDW 16.8 % (10.5-14.5)
[2019-06-23 18:38] LABS: CALCIUM 9.2 mg/dL (8.5-10.1); CREATININE 0.8 mg/dL (0.6-1.0); MAGNESIUM 1.8 mg/dL (1.8-2.4); POTASSIUM 3.9 mmol/L (3.5-5.1)
[2019-06-23 21:10] VITALS: BP 130/62
[2019-06-23 21:37] VITALS: BP 130/62
[2019-06-23 22:00] VITALS: BP 144/71
[2019-06-23] MEDS ORDERED: LISINOPRIL2.5 MG PO (23:31)
[2019-06-23] MEDS ORDERED: ASPIRIN325 PO (23:33)
[2019-06-24 04:30] VITALS: BP 153/64
--- NOTE | 2019-06-24 04:43 | NUR ---
PT ARRIVED TO UNIT FROM ER AT 2145. PT AOX4. PT REPORTS GENERALIZED PAIN ALL OVER WITH ACTIVITY, DENIES PAIN AT REST. PT NOTED TO HAVE INCREASED PAIN DURING REPOSITIONING. NOTIFIED MD, RECEIVED ORDERS TO RESUME HOME MEDICATIONS AND TO START PRN Q4HR IV MORPHINE. FREQUENT REPOSITIONING ENCOURAGED. PRESSURE WOUND NOTED TO LEFT BUTTOCK, SKIN PROTECTANT APPLIED, OFFLOADING ENCOURAGED. PT NOTED TO BE ABLE TO INDEPENDENTLY REPOSITION HERSELF. PT ASSESSED WITH STRONG BUE, RLE AND WEAKNESS TO LLE. PT NOTED TO HAVE EPISODES OF CONFUSION WHEN AWAKE, REPORING SHE IS SCARED, DOESN'T REMEMBER WHERE SHE IS, YELLING HELP, TAKING CLOTHES OFF. PT EASY TO REDIRECT AND CONSOLE. PT ENCOURAGED TO NOTIFY STAFF FOR ALL NEEDS. PT ROOM REMAINS CLOSE TO NURSES STATION. CALL LIGHT WITHIN REACH, BED IN LOWEST POSITION, BED ALARM ON. WILL CONTINUE TO MONITOR.
[2019-06-24 07:50] VITALS: BP 151/69
[2019-06-24 17:49] VITALS: BP 151/79
[2019-06-24 19:40] VITALS: BP 120/48
--- NOTE | 2019-06-24 20:19 | NUR ---
PT HAS AREA TO BUTTOCKS IS OPEN AND PINK APPLIED BARRIER CREAM. WOUND CARE NOTIFIED. MESSAGE LEFT. PT TURNED TO RIGHT HAS LEFT HIP INCISION AND HEMATOMA. PT HAS SLEPT MOST OF DAY. BUT AT 1400 MORE ALERT.
[2019-06-25 06:09] LABS: ABSOLUTE NEUTROPHILS 6.6 thou/uL (1.4-8.2); BASOPHILS 0.8 % (0.0-2.0); EOSINOPHILS 4.1 % (0.0-3.0); HEMATOCRIT 32.3 % (37.0-47.0); HEMOGLOBIN 10.4 gm/dL (12.0-15.0); LYMPHOCYTES 11.5 % (24.0-44.0); MCH 30.6 pg (26.0-34.0); MCHC 32.1 g/dL (28.0-37.0); MCV 95.3 fL (80.0-100.0); MONOCYTES 7.1 % (1.0-8.0); PLATELET COUNT 467 thou/uL (150-400); POLYS 76.5 % (36.0-66.0); RBC 3.38 mil/uL (4.20-5.00); RDW 16.3 % (10.5-14.5); WBC 8.6 thou/uL (4.0-11.0)
[2019-06-25 07:30] VITALS: BP 146/67
--- NOTE | 2019-06-25 07:41 | H ---
[facility] [place] [address] HISTORY AND PHYSICAL Name: MAURICIO SHEIKH Room #: 437-P ADM IN M.R.#: [id number] Admission: 06/23/19 Attend Phys: Aggie Wilks MD Discharge: Date of : 33 Report #: [id number] THIS REPORT FOR: cc: Aggie Wilks MD,Aggie Wilks,Aggie RODRIGUEZ ~ CC: Aggie Wilks DATE OF SERVICE: 06/24/2019 HISTORY OF PRESENT ILLNESS: The patient is an 83-year-old female who was brought to the Emergency Room with swelling around her hip prosthesis. The patient did not have any fall. The patient was found to have a hematoma in the area and for this reason, she was admitted to the hospital for further treatment. The patient's story started on 03/13 where she had a fall in her home and she had left femoral neck fracture that was treated with left hip percutaneous screw placement. The patient went through rehabilitation at [facility] and after that she was discharged home. Unfortunately, she had another fall on 05/31 where she was admitted to the hospital here at [facility] and she had left hip hemiarthroplasty with removal of the hardware and she was sent to [facility] for further rehabilitation. According to the patient, she did not have any further falls. The patient was noticed to have some increasing swelling around the hip area. For this reason, she was brought to the Emergency Room. PAST MEDICAL HISTORY: Significant for the above-mentioned history of surgery. 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 MEDICATIONS: The patient's medications from [facility] include DuoNeb nebulizer treatment, ferrous sulfate 325 mg daily, lisinopril 40 mg daily, aspirin 325 mg daily, [place] 2 tablets t.i.d. p.r.n., tramadol 50 mg every 6 hours as needed, Tylenol 1000 mg t.i.d., Remeron 15 mg at bedtime, lactobacillus 1 tablet daily, docusate sodium 100 mg daily and lidocaine patch. SOCIAL HISTORY: The patient was smoking until she got to the long term facility. Otherwise, no significant alcohol use and no drug use. FAMILY HISTORY: Noncontributory. REVIEW OF SYSTEMS: Negative besides what was mentioned above. PHYSICAL EXAMINATION: VITAL SIGNS: Showed a temperature of 36.7, pulse 98, respirations 16, blood pressure 153/64. [facility] [address] [place] [address] HISTORY AND PHYSICAL Name: MAURICIO SHEIKH Room #: 437-P [facility] IN [facility]#: [id number] Admission: 06/23/19 Attend Phys: Aggie Wilks MD Discharge: Date of : 33 Report #: [id number] HEAD AND NECK: Remarkable for no trauma. The patient does not have any drainage from the nose or ears and wet mucous membranes. NECK: Supple. LUNGS: Clear to auscultation. CARDIAC: S1, S2. ABDOMEN: Benign. Bowel sounds were positive. EXTREMITIES: Without any edema on the right leg, +2 edema on the left leg. The patient has mass around the incision on the left hip area. LABORATORY DATA: A 12-lead EKG showed sinus rhythm with left atrial enlargement and nonspecific T-wave abnormalities and prolonged QT interval. X-ray of the left hip showed large complexity within the lateral soft tissue likely representing hematoma, post-surgical changes of the left hip hemiarthroplasty with an unchanged fracture of the greater trochanter. CBC showed a white count of 13.0, hemoglobin 10.1, hematocrit 31.8, platelet count 475, neutrophils are 85%. The patient's metabolic panel showed sodium of 134, potassium 3.9, chloride 97, bicarbonate 28, BUN 14, creatinine 0.8, glucose 126. CT of the pelvis showed bilateral sacral wing acute vertical nondisplaced insufficiency fractures, 2 presumed hematomas about 11 cm and 9 cm surrounding the left hip, visibility extremely limited, prior left hip hemiarthroplasty extensive metallic streak artifact limiting visibility of the surrounding anatomy, severe sigmoid colon diverticulosis. ASSESSMENT AND PLAN: 1. Hematoma surrounding the left hip hemiarthroplasty. 2. Hypertension. 3. Anemia. 4. Elevated white count. The patient will be admitted to the hospital with the above-mentioned diagnoses. The patient will be evaluated by orthopedist to see there is any need for any surgical intervention. I will go ahead and repeat the patient's blood test for tomorrow. I will hold off for the anticoagulation until we have the decision from the orthopedist. The patient to start physical therapy and occupational therapy. <ELECTRONICALLY SIGNED> By: Aggie Wilks MD 06/25/19 0741 0734 0746 Aggie Wilks MD /nt
--- NOTE | 2019-06-25 08:10 | NUR ---
PT LYING IN BED. DENIES PAIN. INCONTINENT OVER NIGHT. RESTING COMFORTABLY. FREQUENT OBSERVATION.
--- NOTE | 2019-06-25 17:14 | NUR ---
VSS-AFEBRILE. LUNGS CLEAR/DIMINISHED IN ALL MORALES BILATERALLY-ROOM AIR. C/O LEFT HIP PAIN THROUGHOUT DAY SHIFT. TEARFUL, AND DIFFICULT TO CONSOLE, ALTERNATED IV AND PO PAIN MEDICATIONS, OCCASIONAL RELIF NOTED. FREQUENTLY INCONTINENT OF URINE AND SMEARS OF STOOL, CLEANSED AMD CHANGED POSITIONS EVERY TWO HOURS. THREE OPEN PRESSURE WOUNDS TO LEFT BUTTOCK, CLEANSED AREA PRN AND APPLIED CREAM FOR COMFORT. ORDERS FOR DC PRESENT, AWAITING WORD ON PLACEMENT. LEFT HIP INCISION IS SWOLLEN, AND RAISED, BUR NOT RED. ICE PACKS PLACED FOR COMFORT. PLACED IV EARLY IN SHIFT, RIGHT HAND 22 GAUGE. TOLERATED WELL. FALL PRECAUTIONS IN PLACE.
--- NOTE | 2019-06-25 17:28 | NUR ---
SPOKE WITH DR OJEDA REGARDING DISCHARGE. PATIENT TO REMAIN AN INPATIENT UNTIL CASE MANAGEMENT CAN SEE PATIENT AND ARRANGE PLACEMENT.
[2019-06-25 18:06] VITALS: BP 165/75
[2019-06-25 20:45] VITALS: BP 169/89
--- NOTE | 2019-06-26 00:38 | NUR ---
HEMATOMA TO LEFT HIP. PT PAIN WELL MANAGED WITH ALTERNATING IV AND PO MEDS .Q 2HR TURN PROVIDED. L BUTTONG WOUNDS WITH FORM DRG-IT COMES OFF OFTEN, BARRIER CRM APPLIED. PT USES BEDPAN-SMALL BM SMEARS NOTED. SWALLOWS MEDS OKAY. SCDS IN PLACE. EDEMA TO LLE.NEURO CHECKS INTACT.
[2019-06-26 04:10] VITALS: BP 162/80
[2019-06-26 07:26] VITALS: BP 151/80
[2019-06-26 09:54] VITALS: BP 151/80
--- NOTE | 2019-06-26 10:26 | NUR ---
WOUND CARE CONSULT ASSESSED WOUNDS W/ GEM STONE CUTTER, L BUTTOCK/SACRAL WOUND PRESSURE STAGE2, PINK VIABLE TISSUE PRESENT, L HIP SURGICAL WOUND SAME, HEMATOMA PRESENT, IMPROVING, INCONT STOOL AND URINE, ALERT COOPERATIVE, SEE PROCESS INTERVENTION FOR WOUND DETAILS, PHOTO TAKEN BUTTOCK/SACRAL WOUND, PER ORTHO NO INTERVENTION TX NOW FOR L HIP WOUND, DRY ESCHAR REMAINS, NO DRAINAGE RECOMMENDATIONS LOW AIR LOSS PUMP TO BED IF NOT DC TODAY, ZGUARD TO SACRAL/BUTTOCK AREA DAILY AND PRN, COVER W/ SACRAL BORDER FOAM, TURN AT LEAST [id number], OFF LOADING RN AWARE
--- NOTE | 2019-06-26 12:24 | NUR ---
PT DISCHARGING TODAY TO [facility] FOR SKILLED STAY FAXED DC ORDERS/SUMMARY TO FACILITY SPOKE WITH GRAHAM IN ADM SHE RECEIVED ORDERS AND ARRANGED TRANSPORT FOR 1300 TODAY. NOTIFIED PT'S FRIEND (JACKIE) OF DC AND TIME OF TRANSPORT. UNIT NOTIFIED AND CHART COPY PER US. RN TO CALL REPORT TO [phone].
--- NOTE | 2019-06-26 13:07 | NUR ---
PT ADMITTED RELATED TO FALL, LEFT HIP HEMATOMA, WEAKNESS. CM REVIEWED CHART AND SPOKE WITH CARE TEAM. CM MET WITH PT AT BEDSIDE THIS DAY. PT IS A&O TO SELF. PT CONFIRMED THAT SHE HAD BEEN AT [facility] PRIOR TO ADMISSION. CARE TEAM INDICATED THAT PT IS MEDICALLY STABLE TO DISCHARGE BACK TO [facility] THIS DAY. CM CALLED AND SPOKE WITH PT'S FRIEND JACKIE GARCIA. SHE INDICATED THAT SHE IS AGREEABLE WITH PT RETURNING TO [facility] AND THAT SHE HAD APPLIED FOR MEDICAID FOR PT AND THAT SHE THINKS PT MIGHT BENEFIT FROM LTC IN A MEMORY CARE UNIT ONE THROUGH WITH REHAB. CM INDICATED THAT CM WOULD CONVEY THAT TO CARE TEAM AT [facility] THAT THEY MIGHT BE INTERESTED IN TRANSITIIONING. [facility] TRANSPORT ARRANGED FOR 1300. CHART COPY MADE. ORDERS FAXED. JACKIE NOTIFIED. NO OTHER CM INTERVENTION INDICATED. CASE CLOSED.
== END 2019-06-26 13:08 | DRG 920 ==
LOC: ER 17:36 → 4S 20:41 → EROBS 20:41 → 4S 21:37
PROVIDERS: Emergency Medicine; ADMIT Internal Medicine
DX: M96.840 Postprocedural hematoma of a musculoskeletal structure following a musculoskeletal system procedure (principal); S32.110A Nondisplaced Zone I fracture of sacrum, initial encounter for closed fracture; Y83.1 Surgical operation with implant of artificial internal device as the cause of abnormal reaction of the patient, or of later complication, without mention of misadventure at the time of the procedure; E11.9 Type 2 diabetes mellitus without complications; J84.10 Pulmonary fibrosis, unspecified; D64.9 Anemia, unspecified; I10 Essential (primary) hypertension; X58.XXXA Exposure to other specified factors, initial encounter; F03.90 Unspecified dementia, unspecified severity, without behavioral disturbance, psychotic disturbance, mood disturbance, and anxiety; Z79.899 Other long term (current) drug therapy; Y92.89 Other specified places as the place of occurrence of the external cause; Z79.82 Long term (current) use of aspirin; Z87.891 Personal history of nicotine dependence; Z72.89 Other problems related to lifestyle; Y99.8 Other external cause status; Z79.51 Long term (current) use of inhaled steroids; Y93.89 Activity, other specified
CPT/HCPCS: 10195